=== PATIENT | female | born 1995 | race Caucasian/White ===

== ENCOUNTER 2018-08-21 12:25 | Outpatient (REF) | payer MEDICAID, SELFPAY ==
--- NOTE | 2018-08-21 10:00 | PAPFT_PTH ---
PATIENT: Berna Lawrence LOC: [facility] U#:[id number] AGE/SX: 22/F ROOM: RE08/21/[address]: Dede Cunha NP : 1995 BED: DIS: 08/21/2018 SPEC #: [id number] RECD: 08/21/18 13:17 STATUS: KING MAHER #: [id number] JUAN: 08/21/18 10:[address]: Dede Cunha NP DEPT: PENDING SALE TO [facility] Cytology RECD BY: Kimberlee Kulkarni ENTERED: 08/21/18 13:17 SP TYPE: PAPFT OT DR: Marquita Mckeon APRN Tissues: 1 - CX/ENDOCX FOR PAP SMEARS Procedures: PAP THIN PREP/[facility] Screening Comments: [id number] (CHLAMYDIA/GC)
[2018-08-23 14:04] LABS: Chlamydia Result Negative; GC Result Negative; Specimen Description SEE COMMENTS
== END 2018-08-21 12:45 ==
LOC: LBN 12:25
PROVIDERS: PCP Nurse Practitioner; Visit Provider Nurse Practitioner Women's Health
DX: Z12.4 Encounter for screening for malignant neoplasm of cervix (principal); Z11.51 Encounter for screening for human papillomavirus (HPV); Z11.3 Encounter for screening for infections with a predominantly sexual mode of transmission
CPT/HCPCS: 87491; 87591; 88142

== ENCOUNTER 2020-02-19 22:11 | Outpatient (REF) | payer MEDICAID, SELFPAY ==
[2020-02-19 17:36] LABS: *AMPHETAMINES SCREEN URINE Negative (Negative); *BARBITURATES SCREEN URINE Negative (Negative); *BENZODIAZEPINES SCREEN URINE Negative (Negative); Cannabinoids THC POSITIVE (Negative); Cocaine Screen,Urine Negative (Negative); METHADONE URINE SCREEN Negative (Negative); OPIATES URINE SCREEN Negative (Negative)
[2020-02-19 17:50] LABS: Tricyclic Antidepressants Negative (Negative)
[2020-02-26 12:11] LABS: Buprenorphine Negative
== END 2020-02-19 22:31 ==
LOC: LBN 22:11
PROVIDERS: Visit Provider Advanced Practice Midwife
DX: O26.92 Pregnancy related conditions, unspecified, second trimester (principal); Z34.90 Encounter for supervision of normal pregnancy, unspecified, unspecified trimester
CPT/HCPCS: 80307; 87086

== ENCOUNTER 2020-02-27 04:08 | Outpatient (CLI) | payer MEDICAID, SELFPAY ==
--- NOTE | 2020-02-27 06:15 | DI.US_ITS ---
EXAM: US OB 2-3 TRIMESTER W MOD CLINICAL HISTORY: routine pnc,O26.92. TECHNIQUE: Transabdominal obstetrical ultrasound performed. COMPARISON: No exams were available for comparison FINDINGS:: Number of fetuses: One. position: Variable Placental location: Anterior no evidence of previa. BIOMETRIC DATA: BPD: 35 mm = 16+ 6 weeks HC: 141mm = 17+ 3 weeks AC: 115mm = 17+ 2 weeks FL: 22 mm = 16+ 4 weeks EFW: 176 Gms = 70% Composite Age: 17+ 0 weeks EDC: 06 August 2020 Heart Rate: 140BPM Amniotic fluid: Amount of fluid is within normal limits. survey: Due to the early gestational age, the anatomy is not adequately visualized. No g ross abnormalities are identified. IMPRESSION: biometric measurements correspond to 17 +0 weeks. The patient is returning 25 March 2020 f or anatomic survey. DATA REPOSITORY:
== END 2020-02-27 04:28 ==
PROVIDERS: Visit Provider Advanced Practice Midwife
DX: Z34.92 Encounter for supervision of normal pregnancy, unspecified, second trimester (principal)
CPT/HCPCS: 76805

== ENCOUNTER 2020-02-27 11:27 | Outpatient (REF) | payer MEDICAID, SELFPAY ==
--- NOTE | 2020-02-27 09:00 | PAPFT_PTH ---
PATIENT: Berna Lawrence LOC: [facility] U#:[id number] AGE/SX: 24/F ROOM: RE02/27/[address]: Arslan Ortiz RN : 1995 BED: DIS: 02/27/2020 SPEC #: [id number] RECD: 02/27/20 12:40 STATUS: KING REQ #: [id number] JUAN: 02/27/20 09:[address]: Arslan Ortiz DEPT: [facility] Cytology RECD BY: Kimberlee Kulkarni ENTERED: 02/27/20 12:40 SP TYPE: PAPFT CB DR: Anai Tissues: 1 - CX/ENDOCX FOR PAP SMEARS Procedures: PAP THIN PREP/[facility]VM Screening Comments: [id number]
[2020-03-02 07:09] LABS: Chlamydia Result Negative (Negative); GC Result Negative (Negative)
== END 2020-02-27 11:47 ==
LOC: LBN 11:27
PROVIDERS: Visit Provider Advanced Practice Midwife
DX: Z11.3 Encounter for screening for infections with a predominantly sexual mode of transmission (principal); Z12.4 Encounter for screening for malignant neoplasm of cervix; R87.610 Atypical squamous cells of undetermined significance on cytologic smear of cervix (ASC-US)
CPT/HCPCS: 87491; 87591; 88142

== ENCOUNTER 2020-02-27 17:39 | Outpatient (REF) | payer MEDICAID, SELFPAY | END 2020-02-27 17:59 | LOC: LBN 17:39 | PROVIDERS: Visit Provider Advanced Practice Midwife | DX: Z34.92 Encounter for supervision of normal pregnancy, unspecified, second trimester (principal); Z36.89 Encounter for other specified antenatal screening; Z11.59 Encounter for screening for other viral diseases; Z11.4 Encounter for screening for human immunodeficiency virus [HIV]; Z01.84 Encounter for antibody response examination | CPT/HCPCS: 36415; 82950; 86787; 86803; 86850; 86900; 86901; 87340; 87389; 87522; 84443; 85025; 86762; 86780 ==

== ENCOUNTER 2020-04-01 01:34 | Outpatient (CLI) | payer MEDICAID, SELFPAY ==
--- NOTE | 2020-04-01 14:34 | DI.US_ITS ---
EXAM: US OB F/U FACIAL/LVOT/RVOT CLINICAL HISTORY: F/U SURVEY. TECHNIQUE: Transabdominal obstetrical ultrasound performed. COMPARISON: US US OB 2-3 TRIMESTER W MOD from 02/27/2020 FINDINGS: Transabdominal obstetrical ultrasound performed. FINDINGS: Number of fetuses: One. position: Cephalic heart rate: 145 bpm. Placental location: Posterior. No evidence of previa. BIOMETRIC DATA: Amniotic fluid index: Amount of fluid is within normal limits. ANATOMICAL SURVEY: Within normal limits. IMPRESSION: 1. Single live intrauterine gestation as above. 2. Completion of the anatomic survey was performed. No anatomic abnormalities are identi fied sonographically. DATA REPOSITORY:
== END 2020-04-01 01:54 ==
PROVIDERS: Visit Provider Advanced Practice Midwife
DX: Z34.90 Encounter for supervision of normal pregnancy, unspecified, unspecified trimester (principal)
CPT/HCPCS: 76815

== ENCOUNTER 2020-06-08 03:46 | Outpatient (CLI) | payer MEDICAID, SELFPAY ==
[2020-06-08 10:10] LABS: HCT 34.4 % (36.0-46.0); HGB 11.1 g/dL (11.2-15.7); MCH 27.2 pg (27.0-33.0); MCHC 32.3 % (32.0-36.0); MCV 84.3 fL (80-95); Platelet Count 241 10^3/uL (130-400); RBC 4.08 10^6/uL (3.93-5.22); RDW 14.6 % (11.7-14.6); RDW-SD 44.6 fL; WBC 11.86 10^3/uL (4.4-10.8)
[2020-06-08 10:26] LABS: Glucose,1 Hr (Glucola) 127 mg/dL (80-140)
== END 2020-06-08 04:06 ==
PROVIDERS: Visit Provider Advanced Practice Midwife
DX: O26.893 Other specified pregnancy related conditions, third trimester (principal); O36.0130 Maternal care for anti-D [Rh] antibodies, third trimester, not applicable or unspecified; Z67.91 Unspecified blood type, Rh negative; Z3A.28 28 weeks gestation of pregnancy
CPT/HCPCS: 36415; 82950; 85027; 86850; 90384

== ENCOUNTER 2020-06-22 19:51 | Outpatient (REF) | payer MEDICAID, SELFPAY ==
[2020-06-22 16:06] LABS: *AMPHETAMINES SCREEN URINE Negative (Negative); *BARBITURATES SCREEN URINE Negative (Negative); *BENZODIAZEPINES SCREEN URINE Negative (Negative); Cannabinoids THC POSITIVE (Negative); Cocaine Screen,Urine Negative (Negative); METHADONE URINE SCREEN Negative (Negative); OPIATES URINE SCREEN Negative (Negative)
[2020-06-22 17:37] LABS: Tricyclic Antidepressants Negative (Negative)
[2020-06-26 11:26] LABS: Buprenorphine Negative; Norbuprenorphine Negative
== END 2020-06-22 20:11 ==
LOC: LBN 19:51
PROVIDERS: Visit Provider Advanced Practice Midwife
DX: Z34.93 Encounter for supervision of normal pregnancy, unspecified, third trimester (principal); Z3A.30 30 weeks gestation of pregnancy; F12.90 Cannabis use, unspecified, uncomplicated
CPT/HCPCS: 80307

== ENCOUNTER 2020-08-06 02:31 | Outpatient (CLI) | payer MEDICAID, SELFPAY ==
--- NOTE | 2020-08-06 08:00 | DI.US_ITS ---
EXAM: US OB HUMPHREY WEIGHT CLINICAL HISTORY: s>/=d,Z34.90. TECHNIQUE: Transabdominal obstetrical ultrasound was performed. COMPARISON: Prior ultrasound 04/02/2020 FINDINGS: There is a single viable intrauterine gestation with cardiac activity identified-150 bpm The fetus is presently in cephalic position . Amniotic fluid: There is a normal amount of amniotic fluid with an HUMPHREY of 10.3cm. Placental location: The placenta is posterior grade 2,with no evidence of placenta previa. Dating parameters place this at approximately 38 weeks and 2 days gestational age, implying SARAH of August 18, 2020. BPD measures 38 weeks and 4 days HC measures 37 weeks and 4 days AC measures 38 weeks and 0 days FL measures 38 weeks and 5 days Estimated weight is 3422 gm-7 pounds 9 ounces Fetus is at the 40th percentile on the Hadlock scale. IMPRESSION:: Viable 3rd trimester gestation, as described above. Fetus is at the 40th percentile on the Hadlock scale Posterior placenta. No evidence of placenta previa. DATA REPOSITORY:
== END 2020-08-06 02:51 ==
PROVIDERS: Visit Provider Advanced Practice Midwife
DX: Z34.93 Encounter for supervision of normal pregnancy, unspecified, third trimester (principal)
CPT/HCPCS: 76816

== ENCOUNTER 2020-08-06 19:05 | Outpatient (REF) | payer MEDICAID, SELFPAY ==
[2020-08-06 16:32] LABS: *AMPHETAMINES SCREEN URINE Negative (Negative); *BARBITURATES SCREEN URINE Negative (Negative); *BENZODIAZEPINES SCREEN URINE Negative (Negative); Cannabinoids THC POSITIVE (Negative); Cocaine Screen,Urine Negative (Negative); METHADONE URINE SCREEN Negative (Negative); OPIATES URINE SCREEN Negative (Negative)
[2020-08-06 16:34] LABS: Tricyclic Antidepressants Negative (Negative)
[2020-08-14 11:52] LABS: Buprenorphine Negative ng/mL (Cutoff: 5.0)
== END 2020-08-06 19:25 ==
LOC: LBN 19:05
PROVIDERS: Visit Provider Advanced Practice Midwife
DX: Z34.93 Encounter for supervision of normal pregnancy, unspecified, third trimester (principal); Z36.85 Encounter for antenatal screening for Streptococcus B
CPT/HCPCS: 80307; 87081

== ENCOUNTER 2020-08-08 01:07 | Inpatient (IN) | payer MEDICAID, SELFPAY ==
[2020-08-08] VITALS (14 sets, daily range): BP systolic 123–146; BP diastolic 75–89; PULSE 68–100; RESP 16–18; TEMP 36.4–36.8; O2SAT 75–100
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
[2020-08-08 01:38] LABS: HCT 36.5 % (36.0-46.0); HGB 11.8 g/dL (11.2-15.7); MCH 26.8 pg (27.0-33.0); MCHC 32.3 % (32.0-36.0); MCV 82.8 fL (80-95); MPV 10.9 fL (8.0-11.0); Platelet Count 227 10^3/uL (130-400); RBC 4.41 10^6/uL (3.93-5.22); WBC 13.24 10^3/uL (4.4-10.8)
[2020-08-08] MEDS: Oxytocin/Normal Saline 30 UNITS/500 ML BAG 95 UNITS IV (03:35)
--- NOTE | 2020-08-08 03:39 | PLAC_PTH ---
PATIENT: Berna Lawrence LOC: OBS U#:[id number] AGE/SX: 24/F ROOM: OBS.305 RE08/08/[address]: Umm Shoemaker CNM : 1995 BED: A DIS: 08/09/2020 SPEC #: [id number] RECD: 08/09/20 12:53 STATUS: SOUSofia REQ #: [id number] JUAN: 08/08/20 03:[address]: Umm Shoemaker DEPT: Surgical Specimen RECD BY: Kimberlee Kulkarni ENTERED: 08/09/20 12:53 SP TYPE: PLAC OTHR DR: Unknown,Unknown Tissues: 1 - PLACENTA (3RD TRIMESTER) Procedures: GROSS AND MICRO LEVEL 5 Comments: [id number]
--- NOTE | 2020-08-08 04:05 | OBVDS_ITS ---
Date of service: 08/08/20 Time of Service: 04:05 OB Labor/ Delivery Information Baby A Delivery Delivery Method: Spontaneaous Presentation: Cephalic Cephalic Position: Vertex Vertex Position: Left Occipital Anterior Breech Position: N/A Cord Description-Baby A: Other (nuchal hand) Amniotic Fluid: Meconium Estimated Blood Loss: 350 ml Delivery Outcome: Liveborn Infant Transferred: Remains with Mother Note: Pt labored in bed using nitrous, AROM of large forebag for meconium stained fluid @ 9 cm with vtx @ 0 station, FHT 110-130 bpm through a contraction, 2nd stage huddle completed, pt spontaneously bearing down while in LLP, upper leg held by pt's support person, of vigorous female with nuchal hand noted, bulb sx and held in field until mother ready to receive then to mother's arms, pitocin infusion IV begun, cord ceased pulsations and was clamped then cut by pt's support person, cord blood collected, Senia placenta intact though cord appears to be 2 vessel (1a, 1v), placenta to pathology and cord segment sent for drug screen d/t maternal hx. Perineum and vagina inspected, first degree perineal lac noted, not bleeding and well approximated by maternal tissue thus not repaired, no labial or further vaginal lac visualized. Minimal rubra, apgars 8/9, weight 3170, good maternal/infant bonding observed. Providers Nurse Traffic Observer: Lauren Shoemaker Nurse: Thu Goodman Nurse: Destiny Escamilla Labor/Delivery Information Number of Babies in Womb: 1 Steroids Given: None Reason Steroids Not Administered: N/A Group Beta Strep: Done-Result Unknown Antibiotics Administered: No Rubella Status: Immune Blood Type: B- Varicella Immunity: Immune Maternal Complications: None Shoulder Dystocia: No Stages of Labor Onset of Labor Date: 08/07/20 Onset of Labor Time: 23:00 Complete Dilatation Date: 08/08/20 Complete Dilatation Time: 03:23 Labor - Stage 1 Duration: 24 hours and 0 minutes ROM Baby A: 08/08/20 ROM Baby A: 03:12 Infant Delivery Date-Baby A: 08/08/20 Delivery Time-Baby A: 03:32 Labor Stage 2 Duration: 9 minutes Placenta Delivery Date-Baby A: 08/08/20 Placenta Delivery Time-Baby A: 03:39 Labor-Stage 3 Duration: 7 minutes Total Length of Labor-Baby A: 4 hours and 32 minutes Placenta Cultured: No Placenta Status: Delivered Baby A Gender: Female Gestational Status: Term (39-41.6 wks) Gestational Age in Weeks/Days: 40 Weeks and 1 Days weight: 6 lb 15.818 oz Weight Comment: 3170 gms Score-1 Minute Interval(Baby A) Heart Rate-1 minute: 100 BPM or Greater Respiratory Effort- 1 minute: Spontaneous/Strong Cry Muscle Tone-1 minute: Minimal Flexion/Extension Reflex Response-1 minute: Prompt Response Color-1 minute: Bluish Hands or Feet Score-5 Minute Interval(Baby A) Heart Rate- 5 minute: 100 BPM or Greater Respiratory Effort-5 minute: Spontaneous/Strong Cry Muscle Tone-5 minute: Active Movement Reflex Response-5 minute: Prompt Response Color-5 minute: Bluish Hands or Feet Procedure Procedures: Cord Blood Collection
[2020-08-08] MEDS: Ibuprofen 600 MG TAB PO ×3 (05:05→19:48)
[2020-08-08] MEDS: Acetaminophen 325 MG TAB 650 MG PO ×3 (05:05→19:48)
[2020-08-08] MEDS: Normal Saline Flush 10 ML SYR IVP (08:15)
[2020-08-08 20:17] LABS: COVID-19 RT-PCR UVMMC Result Negative (Negative)
[2020-08-09 07:03] LABS: HCT 38.4 % (36.0-46.0); HGB 12.1 g/dL (11.2-15.7); MCH 26.1 pg (27.0-33.0); MCHC 31.5 % (32.0-36.0); MCV 82.8 fL (80-95); MPV 10.9 fL (8.0-11.0); Platelet Count 208 10^3/uL (130-400); RBC 4.64 10^6/uL (3.93-5.22); RDW 14.1 % (11.7-14.6); RDW-SD 42.5 fL; WBC 11.47 10^3/uL (4.4-10.8)
[2020-08-09] MEDS: Ibuprofen 600 MG TAB PO (07:11)
[2020-08-09] MEDS: Acetaminophen 325 MG TAB 650 MG PO ×2 (07:11→11:12)
--- NOTE | 2020-08-09 07:12 | W.PM.OBPNV1 ---
Date of service: 08/09/20 Time of Service: 07:12 Assessment and Plan Assessment and plan (1) Term delivered: Status: Acute Assessment and plan: A: PPD#1, nml recovery, without complaint off to a good start, handling baby confidently Supported living situation: shares house w/cousin's family FOB is in touch w/pt Baby's blood type is O+, RhoGam indicated P: Pt requests discharge this morning to boarder status until baby is released Declines any BCM at this time Assure admin of RhoGam prior to discharge Extensive discussion with pt about baby blues and PPD At risk of PPD d/t hx, pt declines referral, meds or counseling at this time Written instructions reviewed and given to pt F/up in-person @ 2 & 6 wks with ballistic technician; PAP to be done at 6 week visit Refer to [facility] for PCP and f/up of +HCV status (2) Tobacco dependence: Status: Acute (3) Marijuana smoker: Status: Acute (4) PTSD (post-traumatic stress disorder): Status: Acute (5) Hepatitis C virus infection without hepatic coma: Status: Acute Qualifiers: Viral hepatitis chronicity: chronic Qualified Code(s): B18.2 - Chronic viral hepatitis C (6) H/O: substance abuse: Status: Acute Subjective Subjective Patient comments: No complaints, Pain well controlled, Tolerating diet, Flatus present and Bowel Movement baby status: Doing well, Nursing well, Rooming in and Strong Bonding Observed [place] feeding status: Exclusively breast feeding Exam Physical Exam Vital signs: Temp Pulse Resp BP Pulse Ox 98.2 F 74 18 132/84 75 L 08/08/20 20:05 08/08/20 20:05 08/08/20 20:05 08/08/20 20:05 08/08/20 17:10 Vital Signs Reviewed: Yes Narrative: Hgb 21.1 this morning Constitutional Constitutional: no acute distress HEENT Exam HEENT Exam: Normal Neck Exam Neck Exam: Normal Breast Exam Bilateral: Breast Exam: Normal and Soft Nipple Exam: Normal and Uninjured Respiratory Exam Respiratory Exam: Normal Cardiovascular Exam Cardiovascular Exam: Normal Abdominal Exam Abdomen: Other (soft and nontender) Fundal Exam Fundus: Below Umbilicus and Firm Rectal Exam Rectal Exam: Not Done Exam Perineum: Normal (without edema or bruising) Extremities Exam Extremity Exam: Normal and Full ROM Back/Spine/Pelvis Exam Back Exam: Normal Skin Exam Skin Exam: Normal Neurological Exam Neurological Exam: Normal Psychiatric Exam Psychiatric Exam: Normal Results Hemoglobin/Hematocrit: Hgb 12.1 g/dL (11.2-15.7) 08/09/20 06:52 Hct 38.4 % (36.0-46.0) 08/09/20 06:52
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
== END 2020-08-09 11:30 | disposition home or self-care (01) | DRG 806 ==
PROVIDERS: Admitting Provider Advanced Practice Midwife; Visit Provider Advanced Practice Midwife
DX: O80 Encounter for full-term uncomplicated delivery (principal); O98.42 Viral hepatitis complicating childbirth; Z37.0 Single live birth; O36.0930 Maternal care for other rhesus isoimmunization, third trimester, not applicable or unspecified; Z3A.39 39 weeks gestation of pregnancy; O77.0 Labor and delivery complicated by meconium in amniotic fluid; O70.0 First degree perineal laceration during delivery; O99.324 Drug use complicating childbirth; F12.90 Cannabis use, unspecified, uncomplicated; O99.334 Smoking (tobacco) complicating childbirth; F17.210 Nicotine dependence, cigarettes, uncomplicated; O99.344 Other mental disorders complicating childbirth; F32.9 Major depressive disorder, single episode, unspecified; O99.214 Obesity complicating childbirth; E66.9 Obesity, unspecified; B18.2 Chronic viral hepatitis C
CPT/HCPCS: 36415; 85027; 85461; 86850; 86900; 86901; 90384; U0003; 88307; J2790

== ENCOUNTER 2021-03-07 03:38 | Outpatient (CLI) | payer MEDICAID, SELFPAY ==
[2021-03-07 16:30] LABS: Kit/Specimen SENT
[2021-03-07 16:45] LABS: Abs Immature Grans 0.04 10^3/uL (0.0-0.06); Absolute Basophil Count 0.03 10^3/uL (0.0-0.2); Absolute Eosinophil Count 0.09 10^3/uL (0.0-0.7); Absolute Lymphocyte Count 2.66 10^3/uL (1.2-3.4); Absolute Monocyte Count 0.63 10^3/uL (0.1-0.8); Absolute Neutrophil Count 6.53 10^3/uL (1.2-6.7); Basophils % 0.3; Eosinophils % 0.9; HCT 38.6 % (36.0-46.0); Immature Grans % 0.4; Lymphocytes % 26.7; MCH 25.1 pg (27.0-33.0); MCHC 31.1 % (32.0-36.0); MCV 80.6 fL (80-95); MPV 11.2 fL (8.0-11.0); Monocytes % 6.3; Neutrophils % 65.4; Nucleated RBC 0 %; Platelet Count 195 10^3/uL (130-400); RBC 4.79 10^6/uL (3.93-5.22); RDW 14.6 % (11.7-14.6); RDW-SD 42.8 fL; WBC 9.98 10^3/uL (4.4-10.8)
[2021-03-08 11:12] LABS: Hepatitis B Surface Ag Negative (Negative)
[2021-03-08 11:29] LABS: Varicella IgG Antibody Positive (See Note)
[2021-03-08 11:35] LABS: Rubella IgG Ab (UVM) Positive (See Note)
[2021-03-08 11:53] LABS: HIV-1/2 Ag & Ab Screen Negative (Negative)
[2021-03-09 14:29] LABS: Syphilis Total Ab w/Reflex Nonreactive (Nonreactive)
[2021-03-09 14:59] LABS: HCV RNA Qualitative Undetected (Undetected)
== END 2021-03-07 03:39 | disposition home or self-care (01) ==
LOC: LBO 17:13 → LBN 17:47 → LBO 18:26
PROVIDERS: Visit Provider Advanced Practice Midwife
DX: Z34.91 Encounter for supervision of normal pregnancy, unspecified, first trimester (principal); Z11.4 Encounter for screening for human immunodeficiency virus [HIV]; Z11.59 Encounter for screening for other viral diseases; Z01.84 Encounter for antibody response examination; Z3A.12 12 weeks gestation of pregnancy
CPT/HCPCS: 80307; 86787; 86850; 86900; 86901; 87340; 87389; 87491; 87522; 87591; 85025; 86762; 86780; 87086; 87480; 87510; 87660

== ENCOUNTER 2021-03-07 18:27 | Outpatient (REF) | payer MEDICAID, SELFPAY ==
--- NOTE | 2021-03-07 15:15 | PAPFT_PTH ---
PATIENT: Berna Lawrence LOC: [facility] U#:[id number] AGE/SX: 25/F ROOM: RE03/07/[address]: Bree Jara CNM : 1995 BED: DIS: 03/07/2021 SPEC #: [id number] RECD: 03/07/21 18:34 STATUS: [place] REQ #: [id number] JUAN: 03/07/21 15:[address]: Bree Jara DEPT: [facility] Cytology RECD BY: Kimberlee Kulkarni ENTERED: 03/07/21 18:34 SP TYPE: PAPFT OTHR DR: Unknown,Unknown Tissues: 1 - CX/ENDOCX FOR PAP SMEARS Procedures: PAP THIN PREP/UVM Screening Comments: [id number]
[2021-03-07 19:35] LABS: *AMPHETAMINES SCREEN URINE Negative (Negative); *BARBITURATES SCREEN URINE Negative (Negative); *BENZODIAZEPINES SCREEN URINE Negative (Negative); Cannabinoids THC Positive (Negative); Cocaine Screen,Urine Negative (Negative); METHADONE URINE SCREEN Negative (Negative); OPIATES URINE SCREEN Negative (Negative)
[2021-03-07 19:37] LABS: Tricyclic Antidepressants Negative (Negative)
[2021-03-09 14:53] LABS: Chlamydia Result Negative (Negative); GC Result Negative (Negative)
[2021-03-12 12:01] LABS: Buprenorphine Negative ng/mL (Cutoff: 5.0); Norbuprenorphine Negative ng/mL (Cutoff: 2.5)
== END 2021-03-07 18:28 | disposition home or self-care (01) ==
LOC: LBN 18:27
PROVIDERS: Visit Provider Advanced Practice Midwife
DX: Z34.91 Encounter for supervision of normal pregnancy, unspecified, first trimester (principal); Z11.3 Encounter for screening for infections with a predominantly sexual mode of transmission; Z12.4 Encounter for screening for malignant neoplasm of cervix; Z3A.12 12 weeks gestation of pregnancy; R87.612 Low grade squamous intraepithelial lesion on cytologic smear of cervix (LGSIL)
CPT/HCPCS: 80307; 87491; 87591; 88142; 87086; 87480; 87510; 87660

== ENCOUNTER 2021-04-05 10:42 | Outpatient (CLI) | payer MEDICAID, SELFPAY ==
--- NOTE | 2021-04-05 10:30 | RT.EKG_ITS ---
APPROVED REPORT Exam: Resting ECG Reason for Exam: chest pain Patient Location: O HR:91 bpm ECG Measurements Heart Rate 91 AXIS GA 145 P 48 QRSd 92 QRS 58 QT 337 T 20 QTc 415 Conclusion Sinus rhythm...normal P axis, V-rate 50- 99 Normal Electrocardiogram
== END 2021-04-05 10:43 | disposition home or self-care (01) ==
LOC: DI.CARD 10:44
PROVIDERS: Visit Provider Internal Medicine Cardiovascular Disease
DX: R07.9 Chest pain, unspecified (principal)
CPT/HCPCS: 93010

== ENCOUNTER 2021-04-06 03:25 | Outpatient (CLI) | payer MEDICAID, SELFPAY ==
[2021-04-08 09:26] LABS: AFP 35.5 ng/mL; GA used in risk estimate Scan estimate; IVF Pregnancy No; Initial or repeat testing Initial testing; Insulin dependent diabetes No; Maternal Weight 240 lbs; Number of Fetuses 1; Prev Pregnancy w/NTD No; RECOMMENDED FOLLOW UP None.; Results Summary Normal risk
== END 2021-04-06 03:26 | disposition home or self-care (01) ==
LOC: LBO 03:25
PROVIDERS: Visit Provider Advanced Practice Midwife
DX: Z34.82 Encounter for supervision of other normal pregnancy, second trimester (principal)
CPT/HCPCS: 36415; 82105

== ENCOUNTER 2021-04-20 03:07 | Outpatient (CLI) | payer MEDICAID, SELFPAY ==
--- NOTE | 2021-04-20 08:15 | DI.US_ITS ---
Exam(s) US OB 2-3 TRIMESTER EXAM: US OB 2-3 TRIMESTER CLINICAL HISTORY: anatomy and placental location,Z34.80. TECHNIQUE: Transabdominal obstetrical ultrasound was performed. COMPARISON: US US OB HUMPHREY WEIGHT from 08/06/2020 FINDINGS: There is a single viable intrauterine gestation with cardiac activity identified-155 bpm. Amniotic fluid: There is a normal amount of amniotic fluid. Placental location: The placenta is anterior grade 1,with no evidence of placenta previa.The distance from the tip of the placenta to the internal cervical os is 5.2 cm. Distance from the umbilical cor d insertion to the placental margin is 7 centimeter. ANATOMY: A 3 vessel umbilical cord is seen. A four-chamber cardiac view was obtained. Right and left ventricular outflow tracts were imaged. There are no obvious abnormalities of the spinal column evident. There is no obvious abnormal ity of the anterior abdominal wall. stomach and urinary bladder are identified and there is no evidence of hydronephrosis. No abnormalities of the upper lip region are identified. No evidence of choroid plexus cysts i n the brain. Dating parameters place this at approximately 19 weeks and 3 days gestational age. BPD measures 19 weeks and 5 days HC measures 19 weeks and 4 day AC measures 19 weeks and 2 days FL measures 19 weeks and 0 days Estimated weight is 279 gm-0 pounds 10 ounces Fetus is at the 57th percentile on the Hadlock scale. IMPRESSION:: Single viable intrauterine gestation which is approximately 19 weeks and 3 days gestati onal age, implying an SARAH of September 11, 2021. There are no obvious anomalies evident on today's study. The placenta is anterior with no evidence of placenta previa. There is a normal amount of amniotic fluid. DATA REPOSITORY:
== END 2021-04-20 03:27 ==
PROVIDERS: Visit Provider Advanced Practice Midwife
DX: Z34.92 Encounter for supervision of normal pregnancy, unspecified, second trimester (principal)
CPT/HCPCS: 76805

== ENCOUNTER 2021-05-04 02:38 | Outpatient (CLI) | payer MEDICAID, SELFPAY ==
--- NOTE | 2021-05-04 15:35 | DI.US_ITS ---
APPROVED REPORT EXAM: Comprehensive 2D, Doppler, and color-flow Echocardiogram Patient Location: Out-Patient Assistant Professor Of Philosophy: Tiesha Joshua RDCS (AE) Indications: Chest pain Other Information Study Quality: Adequate Conclusion Normal left ventricular wall thickness and chamber size. Estimated ejection fraction is 60%. There are no segmental wall motion abnormalities Normal right ventricular size and systolic function Both atria are normal in size There is no structural or hemodynamically significant valvular disease Wall motion Left Ventricle The left ventricle is normal size. The left ventricular systolic function is normal. The left ventric ular ejection fraction is within the normal range. There is normal left ventricular wall thickness. T here is normal LV segmental wall motion. There is no ventricular septal defect visualized. LVEF is 59 %. Right Ventricle The right ventricle is normal size. The right ventricular systolic function is normal. The RVSP is 26 .7 mmHg. Atria The left atrium size is normal. The right atrium size is normal. The interatrial septum is intact wit h no evidence for an atrial septal defect. Aortic Valve The aortic valve is normal in structure. Aortic valve is trileaflet. There is no aortic valvular sten osis. No aortic regurgitation is present. Mitral Valve The mitral valve is normal in structure. No evidence of mitral valve stenosis. Trace mitral regurgita tion. Tricuspid Valve The tricuspid valve is normal in structure. There is no tricuspid valve stenosis. Trace tricuspid reg urgitation. Pulmonic Valve The pulmonary valve is normal in structure. There is no pulmonic valvular stenosis. Trace pulmonic re gurgitation. Great Vessels The aortic root is normal in size. The ascending aorta is normal in size. Aortic arch is normal in ca liber. IVC is normal in size and collapses >50% with inspiration. Pericardium There is no pericardial effusion. 2D Dimensions IVSD d PLAX 0.85 cm F: 0.6-1.0 LV Vol A2C d MOD 146.8 mL LVPW d PLAX 0.87 cm F: 0.6 - 1.0 LV Vol A4C d MOD 155.8 mL LVID d PLAX 5.54 cm F: 3.8 - 5.2 LA vol/ BSA A2C s A-L 26.9 mL/m2 LVDs 3.65 cm F: 2.2 - 3.5 LA vol/ BSA A4C s A-L 24.1 mL/m2 Ao Root d 2.69 cm F: 2.7 - 3.3 LA Vol/ BSA Biplane s A-L 25.5 mL/m2 RA Area A4C 17.18 cm2 LA Area A4C s MOD 21.22 cm2 RA Vol/ BSA A4C s A-L 18.1 mL/m2 LA Area A2C s MOD 22.37 cm2 Ao Asc Diam d 3.03 cm F: 2.3 - 3.1 LV EF A4C MOD 59.4 % LV EF Teichholz 62.4 % LV EF A2C MOD 58.0 % LVEF (Camejo's) 59.07 % F: 54 - 74 LV EF Biplane MOD 59.1 % LV Volume 105.66 mL F: 46 - 106 SV 90.66 mL LV Volume Index 39.87 mL/m2 F: 29 - 61 SV Index 34.18 mL/m2 LV Vol Biplane MOD 153.5 mL FS 34.00 % LV Diastology MV E' medial 0.089 (>0.07 m/s) E/A Ratio 1.6 LV E/e MED 8.20 (<14) MV E Vmax 0.73 (0.4-1.3 m/s) MV E' lateral 0.142 (>0.1 m/s) MV A Vmax 0.45 (0.4-1.3 m/s) LV E/e LAT 5.10 (<14) MV E/A Ratio 1.48 MV E/E' medial 8.21 MV E/E' lateral 5.15 Aortic Valve LVOT Area 3.90 cm2 AoV Area Vmax 2.65 cm2 LVOT Vmax 1.09 m/s AoV Area/ BSA (Vmax) 1.00 cm2/m2 LVOT Mean Naveen. 0.69 m/s ADELA Mean Naveen. 2.32 cm2 LVOT Peak Grad 4.7 mmHg ADELA Mean Naveen. Index 0.87 cm2/m2 LVOT Mean Grad 2.3 mmHg LVOT VTI 0.230 m LVOT Diam s 2.20 cm AoV Vmax 1.60 m/s Velocity Ratio 0.68 AoV Mean Naveen. 1.17 m/s AoV Peak Grad 10.3 mmHg LVOT SV 89.82 mL AoV Mean Grad 6.1 mmHg AoV VTI 0.307 m AoV Area VTI 2.92 cm2 AoV Area/ BSA (VTI) 1.10 cm/m2 Mitral Valve MV DT 163 (160-240 msec) MV PHT 47 msec MV Area PHT 4.65 cm2 MV VTI 0.225 m MV Area VTI 3.98 (4.0-6.0 cm2) Pulmonary Valve PV Vmax 1.45 (0.5-1.5 m/s) RVOT Peak Gr. 2.23 mmHg PV Peak Grad 8.5 mmHg RVOT Mean Gr. 1.00 mmHg PV Mean Grad 4.2 mmHg RVOT VTI 0.164 m PV VTI 0.252 m RVOT Vmax 0.75 m/s Tricuspid Valve TR Peak Grad 23.6 mmHg TR Vmax 2.43 m/s RA Pressure 3.00 mmHg RVSP (TR) 26.7 mmHg
== END 2021-05-04 02:58 ==
PROVIDERS: Visit Provider Internal Medicine Cardiovascular Disease
DX: R07.9 Chest pain, unspecified (principal)
CPT/HCPCS: 93306

== ENCOUNTER 2021-06-24 12:42 | Outpatient (CLI) | payer MEDICAID, SELFPAY ==
[2021-06-24 10:49] LABS: HCT 35.8 % (36.0-46.0); HGB 11.2 g/dL (11.2-15.7); MCH 25.9 pg (27.0-33.0); MCHC 31.3 % (32.0-36.0); MCV 82.9 fL (80-95); MPV 10.3 fL (8.0-11.0); Platelet Count 219 10^3/uL (130-400); RBC 4.32 10^6/uL (3.93-5.22); RDW 14.2 % (11.7-14.6); RDW-SD 43.2 fL; WBC 11.36 10^3/uL (4.4-10.8)
[2021-06-24 10:56] LABS: Glucose,1 Hr (Glucola) 110 mg/dL (80-140)
== END 2021-06-24 12:43 | disposition home or self-care (01) ==
LOC: LBO 12:44
PROVIDERS: Visit Provider Advanced Practice Midwife
DX: O36.0130 Maternal care for anti-D [Rh] antibodies, third trimester, not applicable or unspecified (principal)
CPT/HCPCS: 36415; 82950; 85027; 86850; 90384

== ENCOUNTER 2021-07-22 02:32 | Outpatient (CLI) | payer MEDICAID, SELFPAY ==
--- NOTE | 2021-07-22 07:15 | DI.US_ITS ---
Exam(s) US OB HUMPHREY WEIGHT EXAM: US OB HUMPHREY WEIGHT CLINICAL HISTORY: interval growth,HIGH BMI,MARIJUANA USE,Z34.80. TECHNIQUE: Transabdominal obstetrical ultrasound was performed. COMPARISON: Prior ultrasound 04/20/2021 FINDINGS: There is a single viable intrauterine gestation with cardiac activity identified-169 bpm The fetus is presently in cephalic position. Three-vessel umbilical cord identified.. Amniotic fluid: There is a normal amount of amniotic fluid with an HUMPHREY of 14.4cm. Placental location: The placenta is anterior grade 2,with no evidence of placenta previa. Dating parameters place this at approximately 34 weeks and 2 days gestational age, implying SARAH of August 31, 2021. BPD measures 35 weeks and 1 day HC measures 34 weeks and 3 days AC measures 34 weeks and 1 day FL measures 33 weeks and 1 day Estimated weight is 2327 gm-5 pounds 2 ounces Fetus is at the 89th percentile on the Hadlock scale. IMPRESSION:: Viable 3rd trimester gestation, as described above. DATA REPOSITORY:
== END 2021-07-22 02:52 ==
PROVIDERS: Visit Provider Advanced Practice Midwife
DX: O99.333 Smoking (tobacco) complicating pregnancy, third trimester (principal); F17.210 Nicotine dependence, cigarettes, uncomplicated; O99.323 Drug use complicating pregnancy, third trimester; F12.10 Cannabis abuse, uncomplicated; O99.283 Endocrine, nutritional and metabolic diseases complicating pregnancy, third trimester; E66.3 Overweight
CPT/HCPCS: 76816

== ENCOUNTER 2021-08-16 20:03 | Outpatient (REF) | payer MEDICAID, SELFPAY ==
[2021-08-16 21:12] LABS: *AMPHETAMINES SCREEN URINE Negative (Negative); *BARBITURATES SCREEN URINE Negative (Negative); *BENZODIAZEPINES SCREEN URINE Negative (Negative); Cannabinoids THC Positive (Negative); Cocaine Screen,Urine Negative (Negative); METHADONE URINE SCREEN Negative (Negative); OPIATES URINE SCREEN Negative (Negative)
[2021-08-16 21:20] LABS: Tricyclic Antidepressants Negative (Negative)
[2021-08-23 08:46] LABS: Buprenorphine Negative ng/mL (Cutoff: 5.0)
== END 2021-08-16 20:04 | disposition home or self-care (01) ==
LOC: LBN 20:03
PROVIDERS: Visit Provider Advanced Practice Midwife
DX: Z34.93 Encounter for supervision of normal pregnancy, unspecified, third trimester (principal)
CPT/HCPCS: 80307; 87081

== ENCOUNTER 2021-09-15 07:42 | Outpatient (CLI) | payer MEDICAID, SELFPAY ==
[2021-09-15 09:19] VITALS: BP 134/86; PULSE 96; TEMP 36.7
[2021-09-15 09:22] VITALS: BP 134/86; PULSE 96
--- NOTE | 2021-09-15 09:52 | W.OBNST ---
Date of service: 09/15/21 Time of Service: 09:40 NST Evaluation Reason for NST Reasons for Nonstress Test: OTHER, SEE COMMENT Reason for NST Other: Rule out Labor Gestational Age Gestational Age in Weeks and Days: 40 Weeks and 1Days Test and Monitor Explained Test/Monitor Explained: Test Explained and Monitor Explained Vital Signs Blood Pressure: 134/86 Pulse: 96 Temperature: 98.1 F Urine Results Urine Protein: Negative Urine Ketones: Negative Urine Glucose: Negative Urine Blood: Negative NST Information Date on Monitor: 09/15/21 Time on Monitor: 09:12 Date off Monitor: 09/15/21 Time off Monitor: 09:36 Total Time on Monitor: 24 NST Interventions: None NST Evaluation Patient States Movement: Present FHR Baseline: 145 Variability: Moderate 6-25 bpm Accelerations: 15x15 Decelerations: None NST Results: Reactive Note NST Note Note: NST and VE done by CNM due to patient experiencing irregular contractions since last night but not feeling she is in active labor. Her concern about catching labor early is that she is GBS positive and does not want to miss her antibiotic doses. We discussed that we have plan to get her IV and antibiotics as soon as she is in active labor and that 1 dose at least 2 hours before is a good start even is second dose is not given although that would be optimal. NST is reactive and reassuring. VE 1.5/60/-2 posterior and soft. Will have patient return to office on 09/19 for next visit and further assessment or to call with concerns of labor or SROM. Patient prefers discharge to home at this time. KAREN NST Reviewed and Verified by: Bree Jara
[2021-09-15 09:56] VITALS: BP 134/86; PULSE 96; TEMP 36.7
== END 2021-09-15 09:55 | disposition home or self-care (01) ==
LOC: BCD 07:45 → OBS 08:59
PROVIDERS: Visit Provider Advanced Practice Midwife
DX: O48.0 Post-term pregnancy (principal); Z22.330 Carrier of Group B streptococcus; Z3A.40 40 weeks gestation of pregnancy
CPT/HCPCS: 59025

== ENCOUNTER 2021-09-19 07:30 | Observation (INO) | payer MEDICAID, SELFPAY ==
[2021-09-19 08:02] VITALS: BP 148/85; PULSE 108
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
[2021-09-19 08:18] VITALS: PULSE 80; RESP 22; TEMP 36.7
[2021-09-19 08:50] VITALS: BP 124/66; PULSE 90
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
== END 2021-09-19 10:04 | disposition home or self-care (01) ==
LOC: OBS 07:46
PROVIDERS: Admitting Provider Advanced Practice Midwife; Visit Provider Advanced Practice Midwife
DX: O47.1 False labor at or after 37 completed weeks of gestation (principal); Z3A.40 40 weeks gestation of pregnancy; O36.0930 Maternal care for other rhesus isoimmunization, third trimester, not applicable or unspecified; O99.213 Obesity complicating pregnancy, third trimester; E66.9 Obesity, unspecified; O99.323 Drug use complicating pregnancy, third trimester; F12.90 Cannabis use, unspecified, uncomplicated; O99.343 Other mental disorders complicating pregnancy, third trimester; F32.A Depression, unspecified; F43.10 Post-traumatic stress disorder, unspecified; O99.333 Smoking (tobacco) complicating pregnancy, third trimester
CPT/HCPCS: G0378

== ENCOUNTER 2021-09-19 17:48 | Inpatient (IN) | payer MEDICAID, SELFPAY ==
[2021-09-19] VITALS (9 sets, daily range): BP systolic 108–149; BP diastolic 68–89; PULSE 77–93; RESP 18; TEMP 36.4–36.8
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
--- NOTE | 2021-09-19 19:04 | W.OBDELIVERY ---
Date of service: 09/19/21 Time of Service: 19:04 OB Labor/ Delivery Information Baby A Delivery Delivery Method: Spontaneaous Presentation: Cephalic Cephalic Position: Vertex Vertex Position: Left Occipital Anterior Cord Description-Baby A: 3 Vessels Amniotic Fluid: Meconium (ruptured when pusing. ) Estimated Blood Loss: 150 cc. Delivery Outcome: Liveborn Infant Complications: none Infant Transferred: Remains with Mother Note: Berna Lawrence presented in active labor approximately 30 minutes prior to delivery. Second stage huddle was done shortly after arrival with plan to use pitocin IV for active management of second stage due to obesity and rapid labor, and that baby's heart rate by doppler was in normal ranges. She was 8 cm on arrival and progressed to involuntary urge to push and then with delivery of live male at 1834. Meconium fluid noted with SROM <5 minutes prior to . Baby was placed skin to skin. Cord was double clamped and cut by FOB at 5 minutes of life.IV Pitocin was begun after baby delivered per orders. Placenta delivered via davis mechanism, intact at . Fundus firms to U-1 with massage. Perineum inspected and found to be intact. EBL 150 ml. 3 vessel cord noted for baby. scores . Baby boy Elvin is at breast shortly after delivery. Positive family bonding noted. Weight . Parents plan to circ Elvin. Contraception undecided. Expect normal PP course. Will send cord segment for testing due to history of IVDA and + UDS for THC. Providers Nurse [facility]: Bree Jara Labor/Delivery Information Number of Babies in Womb: 1 Steroids Given: None Reason Steroids Not Administered: N/A Group Beta Strep: Positive Antibiotics Administered: No Number of Doses of Antibiotics: 0 Rubella Status: Immune Blood Type: B- Varicella Immunity: Immune Medication in Delivery: none Maternal Complications: None Note: Clindamycin was hung as patient began pushing due to advanced dilation on arrival, was not completed before delivery. Baby A Gestational Status: Term (39-41.6 wks) Length-Baby A: 18 in
--- NOTE | 2021-09-19 19:23 | W.OBDELIVERY ---
Date of service: 09/19/21 Time of Service: 19:00 OB Labor/ Delivery Information Baby A Delivery Delivery Method: Spontaneaous Presentation: Cephalic Cephalic Position: Vertex Vertex Position: Left Occipital Anterior Cord Description-Baby A: 3 Vessels and Clamped/Cut Amniotic Fluid: Meconium Estimated Blood Loss: 150 cc. Delivery Outcome: Liveborn Infant Complications: none Transferred: Remains with Mother Providers Nurse Customer Care Team Coach: Bree Jara Nurse: Nica Husain Nurse: Mayela Ross Labor/Delivery Information Number of Babies in Womb: 1 Steroids Given: None Reason Steroids Not Administered: N/A Group Beta Strep: Positive Antibiotics Administered: No Number of Doses of Antibiotics: 0 Rubella Status: Immune Blood Type: B- Varicella Immunity: Immune Medication in Delivery: none Maternal Complications: None Shoulder Dystocia: No Note: Berna Lawrence presented in active labor approximately 30 minutes prior to delivery. Second stage huddle was done shortly after arrival with plan to use pitocin IV for active management of second stage due to obesity and rapid labor, and that baby's heart rate by doppler was in normal ranges. She was 8 cm on arrival and progressed to involuntary urge to push and then with delivery of live male at 1834. Meconium fluid noted with SROM 1 minute prior to . Baby was placed skin to skin. Cord was double clamped and cut by FOB at 5 minutes of life.IV Pitocin was begun after baby delivered per orders. Placenta delivered via davis mechanism, intact at 1841. Fundus firms to U-1 with massage. Perineum inspected and found to be intact. EBL 150 ml. 3 vessel cord noted for baby. scores 8 at 1 minute and 9 at 5 minutes. Baby boy Elvin is at breast shortly after delivery. Positive family bonding noted. Weight 8lb 11oz. Parents plan to circ Elvin. Contraception will be progesterone only pill. Expect normal PP course. Will send cord segment for testing due to history of IVDA and + UDS for THC. KH Stages of Labor Onset of Labor Date: 09/19/21 Complete Dilatation Date: 09/19/21 Complete Dilatation Time: 18:30 ROM Baby A: 09/19/21 ROM Baby A: 18:33 ROM Total Time- Baby A: [id number] Delivery Date-Baby A: 09/19/21 Delivery Time-Baby A: 18:34 Labor Stage 2 Duration: 4 minutes Placenta Delivery Date-Baby A: 09/19/21 Placenta Delivery Time-Baby A: 18:41 Labor-Stage 3 Duration: 7 minutes Placenta Cultured: No Placenta Status: Delivered Baby A Infant Gender: Male Gestational Status: Term (39-41.6 wks) Gestational Age in Weeks/Days: 40 Weeks and 5 Days Length-Baby A: 18 in Score-1 Minute Interval(Baby A) Heart Rate-1 minute: 100 BPM or Greater Respiratory Effort- 1 minute: Slow Respiration/Weak Cry Muscle Tone-1 minute: Active Movement Reflex Response-1 minute: Prompt Response Color-1 minute: Bluish Hands or Feet Total Score-1 minute: 8 Score-5 Minute Interval(Baby A) Heart Rate- 5 minute: 100 BPM or Greater Respiratory Effort-5 minute: Spontaneous/Strong Cry Muscle Tone-5 minute: Active Movement Reflex Response-5 minute: Prompt Response Color-5 minute: Bluish Hands or Feet Total Score- 5 minute: 9
[2021-09-19 19:47] LABS: Source Nasal/Nares
[2021-09-19 20:26] LABS: COVID-19 PCR Negative (Negative)
[2021-09-19 20:35] LABS: HCT 39.5 % (36.0-46.0); HGB 12.5 g/dL (11.2-15.7); MCH 25.6 pg (27.0-33.0); MCHC 31.6 % (32.0-36.0); MCV 80.8 fL (80-95); MPV 11.4 fL (8.0-11.0); Platelet Count 248 10^3/uL (130-400); RBC 4.89 10^6/uL (3.93-5.22); RDW 14.2 % (11.7-14.6); RDW-SD 41.8 fL; WBC 17.04 10^3/uL (4.4-10.8)
[2021-09-19] MEDS: Ibuprofen 600 MG TAB PO (20:50)
[2021-09-19] MEDS: Acetaminophen 325 MG TAB 650 MG PO (20:50)
--- NOTE | 2021-09-19 23:48 | NUR.NOTE ---
Nursing Note: While speaking with pt further an error in the previous breast feeding risk assessment noted. Pt did not breast feed one of her babies due to medical reasons and only breast fed the other for 6 days.Lots of teaching and support given.
[2021-09-20 00:03] VITALS: BP 120/69; PULSE 87; RESP 18; TEMP 36.9
[2021-09-20] MEDS: Acetaminophen 325 MG TAB 650 MG PO ×3 (00:33→19:11)
[2021-09-20 00:56] VITALS: BP 125/66; PULSE 86; RESP 18; TEMP 36.3
[2021-09-20 05:00] VITALS: BP 132/83; PULSE 81; RESP 18; TEMP 36.5
[2021-09-20] MEDS: Ibuprofen 600 MG TAB PO ×3 (05:16→19:19)
[2021-09-20 08:30] VITALS: BP 128/73; PULSE 81; RESP 16; TEMP 36.3
--- NOTE | 2021-09-20 09:13 | W.PM.OBPNV1 ---
Date of service: 09/20/21 Time of Service: 09:13 Assessment and Plan Assessment and plan (1) care following vaginal delivery: Status: Acute Assessment and plan: 1. Continue present management 2. Expect discharge 3/16 pm. (2) Lactating mother: Status: Acute Assessment and plan: 1. Breast feeding is improving with patient education and support 2. Continue present management. Subjective Subjective Interval history: Feeling well, breast feeding is going fairly well. Positive family bonding noted. Meeting her own ADL's. Patient's Mood: normal, happy that she is delivered. Christiana baby status: Doing well, Nursing well, Rooming in and Strong Bonding Observed Exam Physical Exam Vital signs: Temp Pulse Resp BP 97.7 F 81 18 132/83 09/20/21 05:00 09/20/21 05:00 09/20/21 05:00 09/20/21 05:00 Vital Signs Reviewed: Yes Constitutional Constitutional: no acute distress, morbidly obese and cooperative HEENT Exam HEENT Exam: Normal Neck Exam Neck Exam: Normal Breast Exam Bilateral: Breast Exam: Normal and Soft Nipple Exam: Normal Respiratory Exam Respiratory Exam: Normal Cardiovascular Exam Cardiovascular Exam: Normal Abdominal Exam Abdomen: Other (normal and non tender) Fundal Exam Fundus: Below Umbilicus and Firm Rectal Exam Rectal Exam: Not Done Exam Patient deferred: perineal exam Comments: denies discomfort, has been voiding without difficulty and has had BM since delivery without difficulty. Extremities Exam Extremity Exam: Normal, Edema (mild non pitting edema of lower legs bilaterally. ) and Pulses Intact Skin Exam Skin Exam: Normal Neurological Exam Neurological Exam: Normal Psychiatric Exam Psychiatric Exam: Normal Results Hemoglobin/Hematocrit: Hgb 12.5 g/dL (11.2-15.7) 09/19/21 17:54 Hct 39.5 % (36.0-46.0) 09/19/21 17:54 Abnormal Lab Findings: Abnormal Labs 09/19/21 17:54 WBC 17.04 H MCH 25.6 L MCHC 31.6 L MPV 11.4 H
[2021-09-20 14:00] VITALS: BP 117/76; PULSE 87; RESP 16; TEMP 36.6; O2SAT 95
[2021-09-21 04:06] VITALS: BP 116/51; PULSE 84; RESP 16; TEMP 36.6
[2021-09-21] MEDS: Acetaminophen 325 MG TAB 650 MG PO ×2 (08:02→13:38)
[2021-09-21] MEDS: Ibuprofen 600 MG TAB PO ×2 (08:02→13:38)
[2021-09-21 08:36] VITALS: BP 132/83; PULSE 80; RESP 14; TEMP 36.5
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
[2021-09-21 12:57] LABS: HCV RNA Qualitative Undetected (Undetected)
== END 2021-09-21 14:10 | disposition home or self-care (01) | DRG 806 ==
PROVIDERS: Admitting Provider Advanced Practice Midwife; Visit Provider Advanced Practice Midwife
DX: O99.214 Obesity complicating childbirth (principal); O98.42 Viral hepatitis complicating childbirth; Z37.0 Single live birth; O36.0930 Maternal care for other rhesus isoimmunization, third trimester, not applicable or unspecified; E66.01 Morbid (severe) obesity due to excess calories; O99.824 Streptococcus B carrier state complicating childbirth; B18.2 Chronic viral hepatitis C; O99.324 Drug use complicating childbirth; F12.90 Cannabis use, unspecified, uncomplicated; Z3A.40 40 weeks gestation of pregnancy
CPT/HCPCS: 36415; 85027; 85461; 86850; 86900; 86901; 87522; 87635; 90384; J2790; J3490

== ENCOUNTER 2021-11-09 17:22 | Outpatient (REF) | payer MEDICAID, SELFPAY ==
--- NOTE | 2021-11-09 14:45 | PAPFT_PTH ---
PATIENT: Berna Lawrence LOC: [facility] U#:[id number] AGE/SX: 26/F ROOM: RE11/09/[address]: Umm Shoemaker CNM : 1995 BED: DIS: 11/09/2021 SPEC #: [id number] RECD: 11/10/21 13:10 STATUS: KING MAHER #: [id number] JUAN: 11/09/21 14:[address]: Umm Shoemaker DEPT: [facility] Cytology RECD BY: Buck Christian Tissues: 1 - CX/ENDOCX FOR PAP SMEARS Procedures: PAP THIN PREP/UVM Screening HPV DNA PROBE Comments: [id number] (CHLAMYDIA/GC)
[2021-11-11 23:06] LABS: Chlamydia Result Negative (Negative); GC Result Negative (Negative)
== END 2021-11-09 17:23 | disposition home or self-care (01) ==
LOC: LBN 17:22
PROVIDERS: Visit Provider Advanced Practice Midwife
DX: Z11.3 Encounter for screening for infections with a predominantly sexual mode of transmission (principal); Z12.4 Encounter for screening for malignant neoplasm of cervix; R87.613 High grade squamous intraepithelial lesion on cytologic smear of cervix (HGSIL); Z11.51 Encounter for screening for human papillomavirus (HPV); R87.810 Cervical high risk human papillomavirus (HPV) DNA test positive; Z87.42 Personal history of other diseases of the female genital tract
CPT/HCPCS: 87491; 87591; 88142; 87624

== ENCOUNTER 2021-11-25 11:59 | Outpatient (REF) | payer MEDICAID, SELFPAY ==
--- NOTE | 2021-11-25 11:00 | ENDO_PTH ---
PATIENT: Berna Lawrence LOC: [facility] U#:[id number] AGE/SX: 26/F ROOM: RE11/25/[address]: Julia Mendoza DO : 1995 BED: DIS: 11/25/2021 SPEC #: [id number] RECD: 11/25/21 12:30 STATUS: KING RERavin #: [id number] JUAN: 11/25/21 11:[address]: Julia Mendoza DEPT: Surgical Specimen RECD BY: Kimberlee Kulkarni Tissues: 1 - ENDOCERVICAL BX/CURRETTE 2 - CERVICAL BIOPSY Procedures: GROSS AND MICRO LEVEL 4 P16 IPEX Comments: [id number]
== END 2021-11-25 12:00 | disposition home or self-care (01) ==
LOC: LBN 11:59
PROVIDERS: Visit Provider Obstetrics & Gynecology
DX: N87.1 Moderate cervical dysplasia (principal); R87.613 High grade squamous intraepithelial lesion on cytologic smear of cervix (HGSIL)
CPT/HCPCS: 88305; 88342

== ENCOUNTER 2022-01-10 03:32 | Outpatient (CLI) | payer MEDICAID, SELFPAY | END 2022-01-10 03:33 | disposition home or self-care (01) | LOC: LBO 03:32 | PROVIDERS: Visit Provider Obstetrics & Gynecology ==

== ENCOUNTER 2022-01-10 03:33 | Outpatient (CLI) | payer MEDICAID, SELFPAY | END 2022-01-10 03:34 | disposition home or self-care (01) | LOC: LBO 03:33 | PROVIDERS: Visit Provider Obstetrics & Gynecology ==

== ENCOUNTER 2022-01-30 03:58 | Outpatient (CLI) | payer MEDICAID, SELFPAY ==
[2022-01-30 10:54] LABS: Source Nasal/Nares
[2022-01-30 14:46] LABS: COVID-19 PCR Negative (Negative)
== END 2022-01-30 03:59 | disposition home or self-care (01) ==
LOC: LBO 03:58
PROVIDERS: Visit Provider Obstetrics & Gynecology
DX: Z20.822 Contact with and (suspected) exposure to COVID-19 (principal); Z01.818 Encounter for other preprocedural examination
CPT/HCPCS: 87635

== ENCOUNTER 2022-01-30 03:58 | Outpatient (CLI) | payer MEDICAID, SELFPAY ==
[2022-01-30 11:36] LABS: HCT 37.8 % (36.0-46.0); HGB 11.8 g/dL (11.2-15.7); MCH 24.2 pg (27.0-33.0); MCHC 31.2 % (32.0-36.0); MCV 78 fL (80-95); MPV 11.2 fL (8.0-11.0); Platelet Count 241 10^3/uL (130-400); RBC 4.88 10^6/uL (3.93-5.22); RDW 15.7 % (11.7-14.6); RDW-SD 43.8 fL
== END 2022-01-30 03:59 | disposition home or self-care (01) ==
LOC: LBO 03:58
PROVIDERS: Visit Provider Obstetrics & Gynecology
DX: D06.9 Carcinoma in situ of cervix, unspecified; R87.613 High grade squamous intraepithelial lesion on cytologic smear of cervix (HGSIL); Z01.818 Encounter for other preprocedural examination; Z01.812 Encounter for preprocedural laboratory examination
CPT/HCPCS: 36415; 85027; 86850; 86900; 86901

== ENCOUNTER 2022-02-01 07:50 | Day surgery (SDC) | payer MEDICAID, SELFPAY ==
[2022-01-20 10:15] VITALS: BP 122/78; PULSE 54; RESP 15; TEMP 36.6; O2SAT 97
[2022-02-01] VITALS (8 sets, daily range): BP systolic 112–145; BP diastolic 67–127; PULSE 43–66; RESP 11–26; TEMP 36.1–36.6; O2SAT 97–99; BMI 49.9
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
[2022-02-01] MEDS: Lactated Ringers 1,000 ML 125 ML IV (09:01)
--- NOTE | 2022-02-01 09:56 | CER_PTH ---
PATIENT: Berna Lawrence LOC: [facility] U#:[id number] AGE/SX: 26/F ROOM: RE02/01/[address]: Julia Mendoza DO : 1995 BED: DIS: 02/01/2022 SPEC #: [id number] RECD: 02/01/22 12:52 STATUS: KING REQ #: [id number] JUAN: 02/01/22 09:[address]: Julia Mendoza DEPT: Surgical Specimen RECD BY: Kimberlee Kulkarni ENTERED: 02/01/22 12:52 SP TYPE: CER CB DR: Unknown,Unknown Tissues: 1 - CERVICAL BIOPSY 2 - CERVICAL BIOPSY Procedures: GROSS AND MICRO LEVEL 5 Comments: [id number]
--- NOTE | 2022-02-01 10:10 | W.PM.OP ---
Date of service: 02/01/22 Time of Service: 10:10 Operative Note Operative Note DATE OF PROCEDURE: 02/01/22 PRE-OP DIAGNOSIS: Cervical dysplasia POST-OP DIAGNOSIS: same PROCEDURE: Loop electrocautery excisional procedure SURGEON: Julia Mendoza ANESTHESIA TYPE: General LMA/ETT Refer to Anesthesia Record ESTIMATED BLOOD LOSS: 5 PATHOLOGY: other (1. Anterior cervix 2. Posterior cervix) COMPLICATIONS: None Patient was transported to: PACU Patient's condition: stable Indications: High-grade Pap smear and cervical dysplasia Findings: Visually normal-appearing cervix Procedure Description: Patient was taken the operating suite with an IV running where she was placed in dorsal supine position and general anesthesia administered. She was then placed in modified dorsolithotomy position and prepped and draped in usual sterile fashion. As of note Hibiclens was used rather than iodine due to significant shellfish allergy. A large Graves coated speculum was inserted into the vaginal vault and the vaginal sidewalls retracted. Cervix was identified and visually appeared normal. With a loop and cautery set at 60, 60, blend 1 a conization was performed of the anterior and posterior portion of the cervix. The base was then cauterized and found to be hemostatic. Monsel's solution was placed for continued hemostasis. Patient tolerated procedure without difficulty and woke from anesthesia with ease. EBL: 5 mL Findings: Normal-appearing cervix Pathology: 1. Anterior cervix 2. Posterior cervix Fluids: Crystalloid per anesthesia Complications: None apparent
--- NOTE | 2022-02-01 11:31 | W.ANESPOSTOP ---
Postoperative Evaluation Date, Time and Location Date Performed: 02/01/22 Time Performed: 11:31 Patient Location: Day Surgery Unit Vital Signs Most Recent Imported Vital Signs: Most Recent Vital Signs Temp Pulse Resp BP Pulse Ox 36.1 C L 56 L 16 113/69 97 02/01/22 11:19 02/01/22 11:19 02/01/22 11:19 02/01/22 11:19 02/01/22 11:19 Pain Score Most Recent Pain Score: Most Recent Pain Score Pain Level 3 02/01/22 11:19 Assessment Mental Status: Awake (Alert & Oriented to Patient Baseline) Airway and Respiratory Function: Patent airway with normal (patient baseline) respiratory exam Cardiovascular Function: Hemodynamically Stable Hydration Status: Adequately Hydrated Nausea & Vomiting: No Nausea or Vomiting Pain: Pt. Denies Any Pain Peripheral Nerve Block: Patient did not receive a nerve block
== END 2022-02-01 11:44 | disposition home or self-care (01) ==
PROVIDERS: Visit Provider Obstetrics & Gynecology
PROC: 0UBC7ZZ Excision of Cervix, Via Natural or Artificial Opening (ICD-10-PCS; CPT 57522; principal; 2022-02-01 09:15)
DX: R87.613 High grade squamous intraepithelial lesion on cytologic smear of cervix (HGSIL); E66.9 Obesity, unspecified; F32.A Depression, unspecified; F12.90 Cannabis use, unspecified, uncomplicated; Z68.42 Body mass index [BMI] 45.0-49.9, adult
CPT/HCPCS: 57522; 81025; 88305; 88307; J1100; J1885; J2405

== ENCOUNTER 2022-06-14 16:39 | Emergency (ER) | payer MEDICAID, SELFPAY ==
[2022-06-14 16:49] VITALS: BP 150/100; PULSE 96; RESP 12; TEMP 36.8; O2SAT 96
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
[2022-06-14] MEDS: predniSONE 20 MG TAB 40 MG PO (18:23)
[2022-06-14] MEDS: Triamcinolone 0.1% CR 15 GM TUBE TP (18:57)
== END 2022-06-14 19:00 | disposition home or self-care (01) ==
PROVIDERS: Emergency Provider Registered Nurse Emergency
DX: B08.4 Enteroviral vesicular stomatitis with exanthem (principal)
CPT/HCPCS: 99283; J7512

== ENCOUNTER 2022-08-22 12:08 | Outpatient (REF) | payer MEDICAID, SELFPAY ==
--- NOTE | 2022-08-22 10:05 | PAPFT_PTH ---
PATIENT: Berna Lawrence LOC: [facility] U#:[id number] AGE/SX: 26/F ROOM: RE08/22/[address]: Julia Mendoza DO : 1995 BED: DIS: 08/22/2022 SPEC #: [id number] RECD: 08/22/22 12:52 STATUS: [place] REQ #: [id number] JUAN: 08/22/22 10:[address]: Julia Mendoza DEPT: [facility] Cytology RECD BY: Kimberlee Kulkarni Tissues: 1 - CX/ENDOCX FOR PAP SMEARS Procedures: PAP THIN PREP/UVM Screening Comments: [id number]
== END 2022-08-22 12:09 | disposition home or self-care (01) ==
LOC: LBN 12:08
PROVIDERS: Visit Provider Obstetrics & Gynecology
DX: Z12.4 Encounter for screening for malignant neoplasm of cervix (principal)
CPT/HCPCS: 88142

== ENCOUNTER 2022-11-01 09:36 | Emergency (ER) | payer MEDICAID, SELFPAY ==
[2022-11-01 09:43] VITALS: BP 128/71; PULSE 79; RESP 18; TEMP 37; O2SAT 81
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
== END 2022-11-01 10:25 | disposition home or self-care (01) ==
PROVIDERS: Emergency Provider Emergency Medicine Emergency Medical Services
DX: M26.621 Arthralgia of right temporomandibular joint (principal)
CPT/HCPCS: 99283

== ENCOUNTER 2023-02-22 16:10 | Outpatient (REF) | payer MEDICAID, SELFPAY ==
--- NOTE | 2023-02-22 14:10 | PAPFT_PTH ---
PATIENT: Berna Lawrence LOC: [facility] U#:[id number] AGE/SX: 27/F ROOM: RE02/22/[address]: Julia Mendoza DO : 1995 BED: DIS: 02/22/2023 SPEC #: [id number] RECD: 02/22/23 18:32 STATUS: [place] REQ #: [id number] JUAN: 02/22/23 14:[address]: Julia Mendoza DEPT: [facility] Cytology RECD BY: Bridgette Rodriguez Tissues: 1 - CX/ENDOCX FOR PAP SMEARS Procedures: PAP THIN PREP/UVM Screening HPV DNA PROBE Comments: [id number]
== END 2023-02-22 16:11 | disposition home or self-care (01) ==
LOC: LBN 16:10
PROVIDERS: Visit Provider Obstetrics & Gynecology
DX: Z12.4 Encounter for screening for malignant neoplasm of cervix (principal); Z11.51 Encounter for screening for human papillomavirus (HPV)
CPT/HCPCS: 88142; 87624

== ENCOUNTER 2023-06-04 09:35 | Emergency (ER) | payer MEDICAID, SELFPAY ==
[2023-06-04 09:37] VITALS: BP 151/91; PULSE 82; RESP 18; TEMP 36.8; O2SAT 99
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
[2023-06-04] MEDS: Clindamycin 150 MG CAP PO (10:09)
== END 2023-06-04 10:10 | disposition home or self-care (01) ==
PROVIDERS: Emergency Provider Emergency Medicine Emergency Medical Services; PCP Physician Assistant Medical
DX: L03.311 Cellulitis of abdominal wall (principal); L02.221 Furuncle of abdominal wall
CPT/HCPCS: 99283

== ENCOUNTER 2023-07-03 15:06 | Outpatient (REF) | payer MEDICAID, SELFPAY ==
[2023-07-03 15:35] LABS: HCT 42.2 % (36.0-46.0); HGB 13.2 g/dL (11.2-15.7); MCH 24.4 pg (27.0-33.0); MCHC 31.3 % (32.0-36.0); MCV 78 fL (80-95); MPV 11.9 fL (8.0-11.0); Platelet Count 213 10^3/uL (130-400); RDW 14.6 % (11.7-14.6); RDW-SD 41.5 fL; WBC 9.32 10^3/uL (4.4-10.8)
[2023-07-03 15:55] LABS: Hemoglobin A1C 5.8 % (<5.7)
[2023-07-03 17:29] LABS: Calculated LDL 141 mg/dL (<100); Cholesterol 222 mg/dL (<200); HDL Cholesterol 45 mg/dL (40-60); TSH 2.43 uIU/mL (0.36-3.74); Triglyceride 180 mg/dL (<150)
[2023-07-03 17:49] LABS: FREE T4 0.73 ng/dL (0.76-1.46)
== END 2023-07-03 15:07 | disposition home or self-care (01) ==
LOC: NCHCN 15:06
PROVIDERS: PCP Physician Assistant Medical; Visit Provider Nurse Practitioner Family
DX: R79.89 Other specified abnormal findings of blood chemistry; N92.0 Excessive and frequent menstruation with regular cycle; E66.8 Other obesity; Z13.1 Encounter for screening for diabetes mellitus; Z83.3 Family history of diabetes mellitus
CPT/HCPCS: 80061; 85027; 83036; 84439; 84443

== ENCOUNTER 2023-09-10 13:53 | Outpatient (REF) | payer MEDICAID, SELFPAY ==
--- NOTE | 2023-09-10 14:00 | PAPFT_PTH ---
PATIENT: Berna Lawrence LOC: [facility] U#:[id number] AGE/SX: 27/F ROOM: RE09/10/[address]: Julia Mendoza DO : 1995 BED: DIS: 09/10/2023 SPEC #: [id number] RECD: 09/10/23 18:20 STATUS: YONNYSofia REQ #: [id number] JUAN: 09/10/23 14:[address]: Julia Mendoza DEPT: [facility] Cytology RECD BY: Kimberlee Kulkarni ENTERED: 09/10/23 18:20 SP TYPE: PAPFT OTHR DR: Carlene Ward Tissues: 1 - CX/ENDOCX FOR PAP SMEARS Procedures: PAP THIN PREP/UVM Screening HPV DNA PROBE Comments: [id number]
== END 2023-09-10 13:54 | disposition home or self-care (01) ==
LOC: LBN 13:53
PROVIDERS: PCP Physician Assistant Medical; Visit Provider Obstetrics & Gynecology
DX: Z12.4 Encounter for screening for malignant neoplasm of cervix (principal); Z11.51 Encounter for screening for human papillomavirus (HPV); R87.610 Atypical squamous cells of undetermined significance on cytologic smear of cervix (ASC-US)
CPT/HCPCS: 88142; 87624

== ENCOUNTER 2023-10-18 18:34 | Outpatient (REF) | payer MEDICAID, SELFPAY ==
[2023-10-18 17:33] LABS: Iron 40 ug/dL (50-170)
[2023-10-18 17:47] LABS: Ferritin 32 ng/mL (8-252); TSH 2.16 uIU/Ml (0.36-3.74)
[2023-10-18 18:04] LABS: FREE T4 0.72 ng/dL (0.76-1.46)
== END 2023-10-18 18:35 | disposition home or self-care (01) ==
LOC: NCHCN 18:34
PROVIDERS: PCP Physician Assistant Medical; Visit Provider Nurse Practitioner Family
DX: E66.9 Obesity, unspecified (principal); R89.9 Unspecified abnormal finding in specimens from other organs, systems and tissues
CPT/HCPCS: 82728; 83540; 84439; 84443

== ENCOUNTER 2023-10-19 11:33 | Outpatient (REF) | payer MEDICAID, SELFPAY ==
--- NOTE | 2023-10-19 10:00 | ENDO_PTH ---
PATIENT: Berna Lawrence LOC: [facility] U#:[id number] AGE/SX: 27/F ROOM: RE10/19/[address]: Julia Mendoza DO : 1995 BED: DIS: 10/19/2023 SPEC #: [id number] RECD: 10/19/23 11:41 STATUS: K[place] REQ #: [id number] JUAN: 10/19/23 10:[address]: Julia Mendoza DEPT: Surgical Specimen RECD BY: Kimberlee Kulkarni ENTERED: 10/19/23 11:41 SP TYPE: Endo OTHR DR: Carlene Ward Tissues: 1 - ENDOCERVICAL BX/CURRETTE Procedures: GROSS AND MICRO LEVEL 4 Comments: [id number]
== END 2023-10-19 11:34 | disposition home or self-care (01) ==
LOC: LBN 11:33
PROVIDERS: PCP Physician Assistant Medical; Visit Provider Obstetrics & Gynecology
DX: Z98.890 Other specified postprocedural states (principal); R87.610 Atypical squamous cells of undetermined significance on cytologic smear of cervix (ASC-US)
CPT/HCPCS: 88305

== ENCOUNTER 2024-04-04 14:54 | Outpatient (REF) | payer MEDICAID, SELFPAY ==
--- NOTE | 2024-04-04 13:40 | PAPFT_PTH ---
PATIENT: Berna Lawrence LOC: [facility] U#:[id number] AGE/SX: 28/F ROOM: RE04/04/[address]: Julia Mendoza DO : 1995 BED: DIS: 04/04/2024 SPEC #: [id number] RECD: 04/04/24 17:32 STATUS: K[place] REQ #: [id number] JUAN: 04/04/24 13:[address]: Julia Mendoza DEPT: [facility] Cytology RECD BY: Kimbelree Kulkarni ENTERED: 04/04/24 17:32 SP TYPE: PAPFT OTHR DR: Karyn Null Tissues: 1 - CX/ENDOCX FOR PAP SMEARS Procedures: PAP THIN PREP/UVM Screening HPV DNA PROBE Comments: [id number] (HPV 16 7 18/45)
== END 2024-04-04 14:55 | disposition home or self-care (01) ==
LOC: LBN 14:54
PROVIDERS: PCP Nurse Practitioner Family; Visit Provider Obstetrics & Gynecology
DX: Z12.4 Encounter for screening for malignant neoplasm of cervix (principal)
CPT/HCPCS: 88142; 87624

== ENCOUNTER 2024-04-17 17:32 | Outpatient (REF) | payer MEDICAID, SELFPAY ==
[2024-04-17 17:12] LABS: Iron 35 ug/dL (50-170); Total Iron Binding Capacity 352 ug/dL (250-450); Transferrin Sat 10 % (15-50)
[2024-04-17 17:27] LABS: Hemoglobin A1C 5.7 % (<5.7)
[2024-04-17 17:53] LABS: ALT 14 U/L (14-59); AST 13 U/L (15-37); Albumin 3.7 g/dL (3.4-5.0); Alkaline Phosphatase 102 U/L (46-116); Anion Gap 9.9 mmol/L (3-11); BUN 16 mg/dL (7-18); Bilirubin, Total 0.22 mg/dL (0.2-1.0); CO2 28.1 mmol/L (21.0-32.0); CREATININE 0.9 mg/dL (0.55-1.02); Calcium 9.6 mg/dL (8.5-10.1); Calculated LDL 134 mg/dL (<100); Chloride 108 mmol/L (98-107); Cholesterol 223 mg/dL (<200); Ferritin 22 ng/mL (8-252); Glucose 108 mg/dL (74-106); HDL Cholesterol 47 mg/dL (40-60); Potassium 4.7 mmol/L (3.5-5.1); Sodium 146 mmol/L (136-145); TSH 1.14 uIU/Ml (0.36-3.74); Total Protein 7.4 g/dL (6.4-8.2); Triglyceride 212 mg/dL (<150); Vitamin D 25 Total 25.2 ng/mL (30-100)
[2024-04-17 18:19] LABS: FREE T4 0.88 ng/dL (0.76-1.46)
[2024-04-17 20:29] LABS: Abs Immature Grans 0.05 10^3/uL (0.0-0.06); Absolute Basophil Count 0.07 10^3/uL (0.0-0.2); Absolute Eosinophil Count 0.11 10^3/uL (0.0-0.7); Absolute Lymphocyte Count 3.68 10^3/uL (1.2-3.4); Absolute Monocyte Count 0.53 10^3/uL (0.1-0.8); Absolute Neutrophil Count 5.72 10^3/uL (1.2-6.7); Basophils % 0.7 %; Eosinophils % 1.1 %; HCT 43.4 % (36.0-46.0); HGB 13.3 g/dL (11.2-15.7); Immature Grans % 0.5 %; Lymphocytes % 36.2 %; MCH 23.9 pg (27.0-33.0); MCHC 30.6 % (32.0-36.0); MCV 78 fL (80-95); MPV 11.4 fL (8.0-11.0); Monocytes % 5.2 %; Neutrophils % 56.3 %; Platelet Count 278 10^3/uL (130-400); RBC 5.56 10^6/uL (3.93-5.22); RDW 15.9 % (11.7-14.6); RDW-SD 45.7 fL; WBC 10.16 10^3/uL (4.4-10.8)
== END 2024-04-17 17:33 | disposition home or self-care (01) ==
LOC: NCHCN 17:32
PROVIDERS: PCP Nurse Practitioner Family; Visit Provider Nurse Practitioner Family
DX: E61.1 Iron deficiency (principal)
CPT/HCPCS: 80053; 80061; 82306; 82728; 83036; 83540; 83550; 84439; 84443; 85025

== ENCOUNTER 2024-09-09 07:30 | Outpatient (CLI) | payer MEDICAID, SELFPAY ==
[2024-09-09 14:36] LABS: Panorama Kit Sent via Fed Ex
[2024-09-09 14:41] LABS: Abs Immature Grans 0.05 10^3/uL (0.0-0.06); Absolute Basophil Count 0.05 10^3/uL (0.0-0.2); Absolute Eosinophil Count 0.12 10^3/uL (0.0-0.7); Absolute Lymphocyte Count 2.59 10^3/uL (1.2-3.4); Absolute Monocyte Count 0.58 10^3/uL (0.1-0.8); Absolute Neutrophil Count 6.85 10^3/uL (1.2-6.7); Basophils % 0.5 %; Eosinophils % 1.2 %; HCT 37.8 % (36.0-46.0); HGB 11.9 g/dL (11.2-15.7); Immature Grans % 0.5 %; Lymphocytes % 25.3 %; MCH 24.5 pg (27.0-33.0); MCHC 31.5 % (32.0-36.0); MCV 78 fL (80-95); MPV 10.5 fL (8.0-11.0); Monocytes % 5.7 %; Neutrophils % 66.8 %; Platelet Count 209 10^3/uL (130-400); RBC 4.86 10^6/uL (3.93-5.22); RDW 16.1 % (11.7-14.6); WBC 10.24 10^3/uL (4.4-10.8)
[2024-09-09 14:56] LABS: Hemoglobin A1C 5.7 % (<5.7)
[2024-09-09 15:58] LABS: ALT 14 U/L (14-59); AST 8 U/L (15-37); Albumin 3.1 g/dL (3.4-5.0); Alkaline Phosphatase 77 U/L (46-116); Anion Gap 8.4 mmol/L (3-11); BUN 12 mg/dL (7-18); Bilirubin, Total 0.15 mg/dL (0.2-1.0); CO2 27.6 mmol/L (21.0-32.0); CREATININE 0.7 mg/dL (0.55-1.02); Calcium 9.1 mg/dL (8.5-10.1); Chloride 105 mmol/L (98-107); Estimated GFR 120.74 (mL/min/1.73m2); Glucose 79 mg/dL (74-106); Potassium 4.1 mmol/L (3.5-5.1); Sodium 141 mmol/L (136-145); TSH (W/Ref FT4) 2.16 uIU/mL (0.36-3.74); Total Protein 6.8 g/dL (6.4-8.2)
[2024-09-09 23:49] LABS: Hepatitis B Surface Ag Negative (Negative)
[2024-09-10 00:30] LABS: HIV-1/2 Ag & Ab Screen Negative (Negative)
[2024-09-10 00:38] LABS: Hepatitis C Ab w Rflx HCV PCR Reactive (Negative)
[2024-09-10 10:50] LABS: Rubella IgG Ab (UVM) Positive (See Note); Varicella IgG Antibody Positive (See Note)
[2024-09-10 13:38] LABS: HCV RNA Qualitative Undetected (Undetected)
[2024-09-12 15:53] LABS: Syphilis IgG w/Reflex Nonreactive (Nonreactive)
== END 2024-09-09 07:31 | disposition home or self-care (01) ==
LOC: LBO 07:30
PROVIDERS: PCP Nurse Practitioner Family; Visit Provider Advanced Practice Midwife
DX: Z34.91 Encounter for supervision of normal pregnancy, unspecified, first trimester (principal)
CPT/HCPCS: 36415; 80053; 86787; 86803; 86850; 86900; 86901; 87340; 87389; 87522; 83036; 84443; 85025; 86762; 86780

== ENCOUNTER 2024-09-09 14:15 | Outpatient (REF) | payer MEDICAID, SELFPAY ==
[2024-09-09 16:21] LABS: *AMPHETAMINES SCREEN URINE Negative (Negative); *BARBITURATES SCREEN URINE Negative (Negative); *BENZODIAZEPINES SCREEN URINE Negative (Negative); Cannabinoids THC Positive (Negative); Cocaine Screen,Urine Negative (Negative); METHADONE URINE SCREEN Negative (Negative); OPIATES URINE SCREEN Negative (Negative)
[2024-09-09 16:29] LABS: Tricyclic Antidepressants Negative (Negative)
[2024-09-09 16:32] LABS: COMMENT (LAB VIEW ONLY) 215.81 mg/dL; PROTEIN 15.8 mg/dL; Prot/Crea Ur Ratio 0.07
[2024-09-10 12:29] LABS: Fentanyl Scr w/Rfx Confirm Negative ng/mL (<1)
[2024-09-10 13:38] LABS: Chlamydia Result Negative (Negative); GC Result Negative (Negative)
[2024-09-13 07:18] LABS: Buprenorphine Negative ng/mL (Cutoff: 5.0); Norbuprenorphine Negative ng/mL (Cutoff: 2.5)
== END 2024-09-09 14:16 | disposition home or self-care (01) ==
LOC: LBN 14:15
PROVIDERS: PCP Nurse Practitioner Family; Visit Provider Advanced Practice Midwife
DX: Z34.91 Encounter for supervision of normal pregnancy, unspecified, first trimester (principal)
CPT/HCPCS: 80307; 80348; 87491; 87591; 82565; 84156; 87086

== ENCOUNTER 2024-09-29 14:09 | Outpatient (CLI) | payer MEDICAID, SELFPAY ==
[2024-09-29 12:37] LABS: Panorama Kit Sent via Fed Ex
[2024-09-29 12:41] LABS: HCT 38.8 % (36.0-46.0); HGB 12.3 g/dL (11.2-15.7); MCH 24.6 pg (27.0-33.0); MCHC 31.7 % (32.0-36.0); MCV 78 fL (80-95); MPV 10.8 fL (8.0-11.0); Platelet Count 222 10^3/uL (130-400); RBC 4.99 10^6/uL (3.93-5.22); RDW 15.4 % (11.7-14.6); RDW-SD 43.4 fL; WBC 9.47 10^3/uL (4.4-10.8)
[2024-09-29 13:21] LABS: ALT 10 U/L (14-59); AST 9 U/L (15-37); Albumin 3.1 g/dL (3.4-5.0); Alkaline Phosphatase 68 U/L (46-116); Anion Gap 14.1 mmol/L (3-11); BUN 9 mg/dL (7-18); Bilirubin, Total 0.2 mg/dL (0.2-1.0); CO2 22.9 mmol/L (21.0-32.0); CREATININE 0.6 mg/dL (0.55-1.02); Calcium 9.4 mg/dL (8.5-10.1); Chloride 104 mmol/L (98-107); Estimated GFR 125.31 (mL/min/1.73m2); Glucose 94 mg/dL (74-106); Potassium 3.9 mmol/L (3.5-5.1); Sodium 141 mmol/L (136-145); Total Protein 7.2 g/dL (6.4-8.2)
== END 2024-09-29 14:10 | disposition home or self-care (01) ==
PROVIDERS: PCP Nurse Practitioner Family; Visit Provider Advanced Practice Midwife
DX: Z34.91 Encounter for supervision of normal pregnancy, unspecified, first trimester
CPT/HCPCS: 36415; 80053; 85027

== ENCOUNTER 2024-10-09 18:37 | Emergency (ER) | payer MEDICAID, SELFPAY ==
[2024-10-09 18:40] VITALS: BP 145/89; PULSE 89; RESP 18; TEMP 36.7; O2SAT 98
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
[2024-10-09] MEDS: Cyclobenzaprine 10 MG TAB, 3 TABS/BTL PO (19:01)
== END 2024-10-09 19:05 | disposition home or self-care (01) ==
LOC: ER 19:02
PROVIDERS: Emergency Provider Emergency Medicine; PCP Nurse Practitioner Family
DX: S09.90XA Unspecified injury of head, initial encounter (principal); W20.8XXA Other cause of strike by thrown, projected or falling object, initial encounter
CPT/HCPCS: 99283

== ENCOUNTER 2025-01-08 02:53 | Outpatient (CLI) | payer MEDICAID, SELFPAY ==
[2025-01-08 13:27] LABS: HCT 34.2 % (36.0-46.0); HGB 10.9 g/dL (11.2-15.7); MCH 25.1 pg (27.0-33.0); MCHC 31.9 % (32.0-36.0); MCV 79 fL (80-95); MPV 10.6 fL (8.0-11.0); Platelet Count 212 10^3/uL (130-400); RBC 4.34 10^6/uL (3.93-5.22); RDW 14.8 % (11.7-14.6); RDW-SD 42.6 fL; WBC 11.54 10^3/uL (4.4-10.8)
== END 2025-01-08 02:54 | disposition home or self-care (01) ==
LOC: LBO 02:53
PROVIDERS: PCP Nurse Practitioner Family; Visit Provider Advanced Practice Midwife
DX: Z34.92 Encounter for supervision of normal pregnancy, unspecified, second trimester (principal); O26.892 Other specified pregnancy related conditions, second trimester; Z67.91 Unspecified blood type, Rh negative
CPT/HCPCS: 36415; 85027; 86850; 90384

== ENCOUNTER 2025-01-22 10:52 | Outpatient (REF) | payer MEDICAID, SELFPAY ==
[2025-01-22 13:42] LABS: Cannabinoids THC Positive (Negative); METHADONE URINE SCREEN Negative (Negative)
[2025-01-23 11:40] LABS: Fentanyl Scr w/Rfx Confirm Negative ng/mL (<1)
== END 2025-01-22 10:53 | disposition home or self-care (01) ==
LOC: LBN 10:52
PROVIDERS: PCP Nurse Practitioner Family; Visit Provider Obstetrics & Gynecology
DX: Z34.93 Encounter for supervision of normal pregnancy, unspecified, third trimester
CPT/HCPCS: 80307; 80348

== ENCOUNTER 2025-02-06 01:06 | Outpatient (CLI) | payer MEDICAID, SELFPAY ==
--- NOTE | 2025-02-06 09:45 | DI.US_ITS ---
Exam(s) US OB HUMPHREY WEIGHT EXAM: US OB HUMPHREY WEIGHT CLINICAL HISTORY: efw and growth, high BMI, , Z34.90. TECHNIQUE: Transabdominal obstetrical ultrasound was performed. COMPARISON: US POCUS EXAM from 08/12/2024 There has been interval study [facility] which is not available at this time. FINDINGS: There is a single viable intrauterine gestation with cardiac activity identified-126 bpm The fetus is presently in cephalic position . Amniotic fluid: There is a normal amount of amniotic fluid with an HUMPHREY of 16.65cm. Placental location: The placenta is posterior-fundal/grade 2,with no evidence of placenta previa. Dating parameters place this at approximately 33 weeks and 4 days gestational age, implying SARAH of 03/23/2025. BPD measures 33 weeks and 5 days HC measures 33 weeks and 4 days AC measures 33 weeks and 4 days FL measures 33 weeks and 2 days Estimated weight is 2207 gm-4 pounds, 14 ounces Fetus is at the 52nd percentile on the Hadlock scale. IMPRESSION:: Viable 3rd trimester gestation, as described above. Presently in cephalic position HUMPHREY= 16.65cm (within normal limits). DATA REPOSITORY:
== END 2025-02-06 01:26 ==
LOC: DI 01:06
PROVIDERS: PCP Nurse Practitioner Family; Visit Provider Advanced Practice Midwife
DX: O43.123 Velamentous insertion of umbilical cord, third trimester; Z3A.33 33 weeks gestation of pregnancy
CPT/HCPCS: 76816

== ENCOUNTER 2025-02-20 00:48 | Outpatient (CLI) | payer MEDICAID, SELFPAY ==
[2025-02-20 10:45] LABS: TSH (W/Ref FT4) 3.59 uIU/mL (0.36-3.74)
== END 2025-02-20 00:49 | disposition home or self-care (01) ==
LOC: LBO 00:48
PROVIDERS: PCP Nurse Practitioner Family; Visit Provider Advanced Practice Midwife
DX: E03.9 Hypothyroidism, unspecified (principal)
CPT/HCPCS: 36415; 84443

== ENCOUNTER 2025-02-20 11:04 | Outpatient (REF) | payer MEDICAID, SELFPAY | END 2025-02-20 11:05 | disposition home or self-care (01) | LOC: LBN 11:04 | PROVIDERS: PCP Nurse Practitioner Family; Visit Provider Advanced Practice Midwife | DX: Z34.93 Encounter for supervision of normal pregnancy, unspecified, third trimester (principal) | CPT/HCPCS: 87186; 87081 ==

== ENCOUNTER 2025-02-23 08:17 | Outpatient (CLI) | payer MEDICAID, SELFPAY ==
[2025-02-23 09:09] VITALS: BP 125/74; PULSE 96; TEMP 36.6
[2025-02-23 09:11] VITALS: BP 125/74; PULSE 96
--- NOTE | 2025-02-23 12:58 | W.OBNST ---
Date of service: 02/23/25 Time of Service: 12:58 NST Evaluation Reason for NST Reasons for Nonstress Test: OTHER, SEE COMMENT Reason for NST Other: placenta previa Gestational Age Gestational Age in Weeks and Days: 35 Weeks and 4Days Test and Monitor Explained Test/Monitor Explained: Test Explained, Monitor Explained and Patient Verbalized Understanding Vital Signs Blood Pressure: 125/74 Pulse: 96 Temperature: 98 F Urine Results Urine Protein: Negative Urine Ketones: Negative Urine Glucose: Negative Urine Blood: Negative NST Information Date on Monitor: 02/23/25 Time on Monitor: 09:08 Date off Monitor: 02/23/25 Time off Monitor: 09:49 Total Time on Monitor: 41 NST Interventions: PO Hydration Contraction Frequency: irregular/rare NST Evaluation Patient States Movement: Present FHR Baseline: 125 Variability: Moderate 6-25 bpm Accelerations: 15x15 Decelerations: None NST Results: Reactive Note Ultrasound Done: N/A. NST Note Note: Berna is here for weekly NST. Reactive NST. return to center weekly. NST Reviewed and Verified by: Bree Brown
[2025-02-23 12:59] VITALS: BP 125/74; PULSE 96; TEMP 36.6
== END 2025-02-23 09:55 ==
LOC: BCD 08:23 → OBS 08:55
PROVIDERS: PCP Nurse Practitioner Family; Visit Provider Advanced Practice Midwife
DX: Z3A.35 35 weeks gestation of pregnancy (principal); O44.03 Complete placenta previa NOS or without hemorrhage, third trimester
CPT/HCPCS: 59025

== ENCOUNTER 2025-03-02 07:54 | Outpatient (CLI) | payer MEDICAID, SELFPAY ==
[2025-03-02 09:50] VITALS: BP 103/62; PULSE 94; TEMP 36.6
[2025-03-02 09:55] VITALS: BP 103/62; PULSE 94
--- NOTE | 2025-03-02 15:12 | W.OBNST ---
Date of service: 03/02/25 Time of Service: 10:30 NST Evaluation Reason for NST Reasons for Nonstress Test: OTHER, SEE COMMENT Reason for NST Other: well being-velamentous cord insertion Gestational Age Gestational Age in Weeks and Days: 36 Weeks and 4Days Test and Monitor Explained Test/Monitor Explained: Test Explained, Monitor Explained and Patient Verbalized Understanding Vital Signs Blood Pressure: 103/62 Pulse: 94 Temperature: 97.9 F Urine Results Urine Protein: Negative Urine Ketones: Negative Urine Glucose: Negative Urine Blood: Negative NST Information Date on Monitor: 03/02/25 Time on Monitor: 09:45 Date off Monitor: 03/02/25 Time off Monitor: 10:27 Total Time on Monitor: 42 NST Interventions: PO Hydration NST Evaluation Patient States Movement: Present FHR Baseline: 130 Variability: Moderate 6-25 bpm Accelerations: 10x10 Decelerations: None Note Ultrasound Done: N/A. NST Note NST Reviewed and Verified by: Umm Shoemaker
[2025-03-02 15:13] VITALS: BP 103/62; PULSE 94; TEMP 36.6
== END 2025-03-02 10:30 ==
LOC: BCD 07:55 → OBS 09:24
PROVIDERS: PCP Nurse Practitioner Family; Visit Provider Advanced Practice Midwife
DX: Z3A.36 36 weeks gestation of pregnancy (principal); O43.123 Velamentous insertion of umbilical cord, third trimester
CPT/HCPCS: 59025

== ENCOUNTER 2025-03-02 12:53 | Outpatient (CLI) | payer MEDICAID, SELFPAY ==
[2025-03-02 11:43] LABS: HCT 33.8 % (36.0-46.0); HGB 10.7 g/dL (11.2-15.7); MCH 24.8 pg (27.0-33.0); MCHC 31.7 % (32.0-36.0); MCV 78 fL (80-95); MPV 11.0 fL (8.0-11.0); Platelet Count 225 10^3/uL (130-400); RBC 4.32 10^6/uL (3.93-5.22); RDW 14.8 % (11.7-14.6); RDW-SD 41.9 fL; WBC 11.97 10^3/uL (4.4-10.8)
[2025-03-02 13:33] LABS: Hemoglobin A1C 5.7 % (<5.7)
== END 2025-03-02 12:54 | disposition home or self-care (01) ==
LOC: LBO 12:54
PROVIDERS: PCP Nurse Practitioner Family; Visit Provider Advanced Practice Midwife
DX: Z34.93 Encounter for supervision of normal pregnancy, unspecified, third trimester (principal)
CPT/HCPCS: 36415; 85027; 83036

== ENCOUNTER 2025-03-05 03:15 | Outpatient (CLI) | payer MEDICAID, SELFPAY ==
--- NOTE | 2025-03-05 06:30 | DI.US_ITS ---
Exam(s) US OB HUMPHREY WEIGHT EXAM: US OB HUMPHREY WEIGHT CLINICAL HISTORY: high BMI,Z34.90. TECHNIQUE: Transabdominal obstetrical ultrasound performed. COMPARISON: US US OB HUMPHREY WEIGHT from 02/06/2025 FINDINGS: Number of fetuses: 1 position: CEPHALIC Placental location: There is a grade 2 posterior and fundal placenta. No evidence of previa. BIOMETRIC DATA: BPD: 9.18cm, 37weeks 2days HC: 32.77cm, 37weeks 1day AC: 33.91cm, 37weeks 6days FL: 7.05cm, 36weeks 1day EFW: 3,168.9g, 7lb 0.48oz, 64.3% Composite Age: 37weeks 1day SARAH: 03/25/2025 Heart Rate: 171bpm Amniotic fluid index: 17.93cm. The largest pocket measures 7.5 cm. IMPRESSION: 1. Single live intrauterine gestation as above. 2. Estimated weight is 3169gms. This is the 64th percentile. 3. Amniotic fluid index is 17.9 cm. The largest pocket measures 7.5 cm. DATA REPOSITORY:
== END 2025-03-05 03:35 ==
LOC: DI 03:15
PROVIDERS: PCP Nurse Practitioner Family; Visit Provider Advanced Practice Midwife
DX: Z34.93 Encounter for supervision of normal pregnancy, unspecified, third trimester (principal); Z3A.37 37 weeks gestation of pregnancy
CPT/HCPCS: 76816

== ENCOUNTER 2025-03-08 07:42 | Outpatient (CLI) | payer MEDICAID, SELFPAY ==
[2025-03-08 09:12] VITALS: BP 122/76; PULSE 86
[2025-03-08 09:13] VITALS: BP 122/76; PULSE 86
--- NOTE | 2025-03-08 09:30 | W.OBNST ---
Date of service: 03/08/25 Time of Service: 09:30 NST Evaluation Reason for NST Reasons for Nonstress Test: OTHER, SEE COMMENT Reason for NST Other: contractions Gestational Age Gestational Age in Weeks and Days: 37 Weeks and 3Days Test and Monitor Explained Test/Monitor Explained: Test Explained, Monitor Explained and Patient Verbalized Understanding Vital Signs Blood Pressure: 122/76 Pulse: 86 Urine Results Urine Protein: Positive Urine Ketones: Negative Urine Glucose: Negative Urine Blood: Negative NST Information Date on Monitor: 03/08/25 Time on Monitor: 08:45 Date off Monitor: 03/08/25 Time off Monitor: 09:15 Total Time on Monitor: 30 NST Interventions: PO Hydration Contraction Frequency: irritability, none appreciated on monitor, toco moved x 3 to capture NST Evaluation Patient States Movement: Present FHR Baseline: 155 Variability: Moderate 6-25 bpm Accelerations: 15x15 Decelerations: None NST Results: Reactive Note Ultrasound Done: N/A. NST Note Note: See separate progress note for visit details. NST is reactive. NST Reviewed and Verified by: Tory Morales
[2025-03-08 09:32] VITALS: BP 122/76; PULSE 86
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
== END 2025-03-08 09:25 ==
LOC: BCD 07:42 → OBS 08:55
PROVIDERS: PCP Nurse Practitioner Family; Visit Provider Advanced Practice Midwife
DX: Z3A.37 37 weeks gestation of pregnancy (principal); O47.1 False labor at or after 37 completed weeks of gestation
CPT/HCPCS: 59025

== ENCOUNTER 2025-03-09 08:50 | Outpatient (CLI) | payer MEDICAID, SELFPAY ==
[2025-03-09 09:09] VITALS: BP 137/81; PULSE 78
[2025-03-09 09:36] VITALS: BP 138/79; PULSE 80
[2025-03-09 09:45] VITALS: BP 138/79; PULSE 80
--- NOTE | 2025-03-09 11:37 | W.OBNST ---
Date of service: 03/09/25 Time of Service: 09:00 NST Evaluation Reason for NST Reasons for Nonstress Test: OTHER, SEE COMMENT Reason for NST Other: velamentous cord insertion Gestational Age Gestational Age in Weeks and Days: 37 Weeks and 4Days Test and Monitor Explained Test/Monitor Explained: Test Explained, Monitor Explained and Patient Verbalized Understanding Vital Signs Blood Pressure: 138/79 Pulse: 80 Urine Results Urine Protein: Negative Urine Ketones: Negative Urine Glucose: Negative Urine Blood: Negative NST Information Date on Monitor: 03/09/25 Time on Monitor: 08:51 Date off Monitor: 03/09/25 Time off Monitor: 09:36 Total Time on Monitor: 45 NST Interventions: PO Hydration Contraction Frequency: q 9-10 minutes NST Evaluation Patient States Movement: Present FHR Baseline: 140 Variability: Moderate 6-25 bpm Accelerations: 15x15 Decelerations: None NST Results: Reactive Note Ultrasound Done: N/A. NST Note NST Reviewed and Verified by: Umm Shoemaker
[2025-03-09 11:38] VITALS: BP 138/79; PULSE 80
== END 2025-03-09 09:40 ==
LOC: BCD 08:53 → OBS 08:59
PROVIDERS: PCP Nurse Practitioner Family; Visit Provider Advanced Practice Midwife
DX: Z3A.37 37 weeks gestation of pregnancy (principal); O43.123 Velamentous insertion of umbilical cord, third trimester
CPT/HCPCS: 59025

== ENCOUNTER 2025-03-17 19:54 | Inpatient (IN) | payer MEDICAID, SELFPAY ==
[2025-03-17] VITALS (11 sets, daily range): BP systolic 129–135; BP diastolic 74–80; PULSE 98–128; RESP 16; TEMP 35.7–37.3; O2SAT 95–98
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
[2025-03-17 20:34] LABS: HCT 34.1 % (36.0-46.0); HGB 10.9 g/dL (11.2-15.7); MCH 24.6 pg (27.0-33.0); MCHC 32.0 % (32.0-36.0); MCV 77 fL (80-95); MPV 10.9 fL (8.0-11.0); Platelet Count 252 10^3/uL (130-400); RBC 4.43 10^6/uL (3.93-5.22); RDW 14.9 % (11.7-14.6); RDW-SD 41.0 fL; WBC 11.90 10^3/uL (4.4-10.8)
[2025-03-17] MEDS: CLINDAMYCIN 900 MG/50 ML BAG 50 MG IVPB (20:40)
[2025-03-17] MEDS: Lactated Ringers 1,000 ML 125 ML IV (20:41)
[2025-03-17] MEDS: Normal Saline Flush 10 ML SYR IVP ×2 (20:49→23:32)
[2025-03-17 20:54] LABS: Hemoglobin A1C 5.8 % (<5.7)
[2025-03-17 21:07] LABS: ALT 11 U/L (14-59); AST 16 U/L (15-37); Albumin 2.7 g/dL (3.4-5.0); Alkaline Phosphatase 154 U/L (46-116); Anion Gap 15.3 mmol/L (3-11); BUN 10 mg/dL (7-18); Bilirubin, Total 0.6 mg/dL (0.2-1.0); CO2 19.7 mmol/L (21.0-32.0); Calcium 9.1 mg/dL (8.5-10.1); Chloride 101 mmol/L (98-107); Estimated GFR 119.99 (mL/min/1.73m2); Glucose 97 mg/dL (74-106); Potassium 3.9 mmol/L (3.5-5.1); Sodium 136 mmol/L (136-145); Total Protein 6.9 g/dL (6.4-8.2)
[2025-03-17 21:44] LABS: Lab Add On Test DONE
[2025-03-17 22:06] LABS: TSH (W/Ref FT4) 2.62 uIU/mL (0.36-3.74)
[2025-03-17 22:37] LABS: Cannabinoids THC Positive (Negative); METHADONE URINE SCREEN Negative (Negative); PROTEIN 86.0 mg/dL; Prot/Crea Ur Ratio 0.43
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
[2025-03-17 22:58] LABS: COVID-19 PCR Negative (Negative); RSV PCR Negative (Negative)
[2025-03-17] MEDS: Oxytocin/Normal Saline 30 UNIT/500 ML BAG 2 UNITS IV (23:30)
[2025-03-18] VITALS (15 sets, daily range): BP systolic 126–147; BP diastolic 62–87; PULSE 90–110; RESP 16; TEMP 36.8–37.4; O2SAT 98
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
--- NOTE | 2025-03-18 03:48 | W.OBDELIVERY ---
Date of service: 03/18/25 Time of Service: 03:49 OB Labor/ Delivery Information Providers Doctor: Alejandra Schmitz Nurse: Renee Shoemaker Nurse: Jess Sorto Other: Thu hansen Labor/Delivery Information Number of Babies in Womb: 1 Steroids Given: None Reason Steroids Not Administered: N/A Group Beta Strep: Positive Antibiotics Administered: Yes Rubella Status: Immune Blood Type: B- Varicella Immunity: Immune Shoulder Dystocia: No Stages of Labor Onset of Labor Date: 03/17/25 Onset of Labor Time: 18:30 Complete Dilatation Date: 03/18/25 ROM Baby A: 03/17/25 ROM Baby A: 18:30 ROM Total Time- Baby A: [id number] Delivery Date-Baby A: 03/18/25 Delivery Time-Baby A: 03:30 Placenta Delivery Date-Baby A: 03/18/25 Placenta Delivery Time-Baby A: 03:33 Labor-Stage 3 Duration: 3 minutes Total Length of Labor-Baby A: 9 hours and 0 minutes Placenta Status: Delivered Baby A Infant Gender: Female Gestational Status: Early Term (37-38.6 wks) Gestational Age in Weeks/Days: 38 Weeks and 6 Days Length-Baby A: 18 in Score-1 Minute Interval(Baby A) Heart Rate-1 minute: 100 BPM or Greater Respiratory Effort- 1 minute: Spontaneous/Strong Cry Muscle Tone-1 minute: Active Movement Reflex Response-1 minute: Minimal Response Color-1 minute: Bluish Hands or Feet Total Score-1 minute: 8 Score-5 Minute Interval(Baby A) Heart Rate- 5 minute: 100 BPM or Greater Respiratory Effort-5 minute: Spontaneous/Strong Cry Muscle Tone-5 minute: Active Movement Reflex Response-5 minute: Prompt Response Color-5 minute: Bluish Hands or Feet Total Score- 5 minute: 9 Note: 29 yo G4 now [id number] underwent a 38 week spontaneous vaginal delivery to a baby girl over an intact perineum without epidural. Ms. Lawrence presented to L&D after spontaneous rupture of membranes at 1830 to clear fluid. She was initiated on Clindamycin for GBS prophylaxis and monitored for 4 hours, at which point augmentation with Pitocin was initiated. Her labor progressed and her pain was well controlled on nitrous. I was called to the room when the patient requested to push. Upon entering the room, the patient was found to be well controlled and bearing down. SVE found her complete with a baby on the perineum. As I grabbed the table in order to prepare for delivery, the mother called out that she felt the head. I turned around to find her delivering the head into the bed. A nuchal cord x1 was appreciated and easily reduced as she delivered the rest of the body without issue. Baby was immediately vigorous and the baby was placed immediately on the maternal chest. After delayed cord clamping was observed, the cord was double clamped and cut by the father of the baby under the guidance of the physician. Shortly after this, the placenta delivered spontaneously on its own into the bed fully intact. No further bleeding was appreciated. A section of cord was double clamped, cut and set aside from the umbilical cord for gases if needed. Cord blood was then collected from the remaining cord. No repairs were necessary. Crede of the fundus found it to be firm and low. Of note, evaluation of the placenta appreciated a marginal cord insertion. Mother and baby tolerated the procedure well.
[2025-03-18] MEDS: Levothyroxine 50 MCG TAB PO (06:15)
[2025-03-18] MEDS: Acetaminophen 325 MG TAB 650 MG PO ×4 (06:16→20:12)
[2025-03-18] MEDS: Hamamelis Leaf/Glycerin 100 EACH BOX PR (08:32)
[2025-03-18] MEDS: Ibuprofen 600 MG TAB PO ×3 (08:32→22:15)
[2025-03-18] MEDS: Dibucaine 1% 28 GM TUBE TP (08:32)
[2025-03-18] MEDS: Ferrous Sulfate 325 MG TAB PO (12:35)
[2025-03-18] MEDS: Docusate Sodium 100 MG CAP PO (16:21)
[2025-03-19] MEDS: Ibuprofen 600 MG TAB PO (05:54)
[2025-03-19] MEDS: Levothyroxine 50 MCG TAB PO (05:54)
[2025-03-19] MEDS: Acetaminophen 325 MG TAB 650 MG PO ×2 (05:54→10:32)
[2025-03-19] MEDS: Docusate Sodium 100 MG CAP PO (05:56)
[2025-03-19] MEDS: RHO(D) Immune Globulin 1,500 UNIT Syringe 1500 UNIT IM (06:48)
[2025-03-19] MEDS: Omeprazole 20 MG CAPCR PO (10:31)
[2025-03-19] MEDS: Ferrous Sulfate 325 MG TAB PO (10:31)
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
== END 2025-03-19 15:45 | disposition home or self-care (01) | DRG 806 ==
LOC: BCD 22:59 → OBS 22:59
PROVIDERS: Admitting Provider Obstetrics & Gynecology; PCP Nurse Practitioner Family; Visit Provider Advanced Practice Midwife
DX: O43.123 Velamentous insertion of umbilical cord, third trimester (principal); O98.42 Viral hepatitis complicating childbirth; Z37.0 Single live birth; O99.324 Drug use complicating childbirth; Z3A.38 38 weeks gestation of pregnancy; Z88.0 Allergy status to penicillin; O99.824 Streptococcus B carrier state complicating childbirth; O69.81X0 Labor and delivery complicated by cord around neck, without compression, not applicable or unspecified; O99.214 Obesity complicating childbirth; E66.813 Obesity, class 3; O99.284 Endocrine, nutritional and metabolic diseases complicating childbirth; E03.9 Hypothyroidism, unspecified; O99.344 Other mental disorders complicating childbirth; F41.8 Other specified anxiety disorders; F12.90 Cannabis use, unspecified, uncomplicated; O16.4 Unspecified maternal hypertension, complicating childbirth; B19.20 Unspecified viral hepatitis C without hepatic coma; O99.02 Anemia complicating childbirth; O26.893 Other specified pregnancy related conditions, third trimester; Z67.91 Unspecified blood type, Rh negative; G89.29 Other chronic pain; M54.9 Dorsalgia, unspecified; F17.210 Nicotine dependence, cigarettes, uncomplicated; O99.334 Smoking (tobacco) complicating childbirth; J45.909 Unspecified asthma, uncomplicated; O99.52 Diseases of the respiratory system complicating childbirth; O99.62 Diseases of the digestive system complicating childbirth; K21.9 Gastro-esophageal reflux disease without esophagitis
CPT/HCPCS: 36415; 80053; 80307; 85027; 85461; 86850; 86900; 86901; 87522; 87637; 90384; J2790; 59025; 82565; 83036; 84156; 84443; 88307; J0737

== ENCOUNTER 2025-03-24 01:35 | Outpatient (CLI) | payer MEDICAID, SELFPAY ==
[2025-03-24 11:14] LABS: HCT 37.2 % (36.0-46.0); HGB 11.4 g/dL (11.2-15.7); MCH 24.1 pg (27.0-33.0); MCHC 30.6 % (32.0-36.0); MCV 79 fL (80-95); MPV 10.7 fL (8.0-11.0); Platelet Count 321 10^3/uL (130-400); RBC 4.73 10^6/uL (3.93-5.22); RDW 14.7 % (11.7-14.6); RDW-SD 41.3 fL; WBC 11.50 10^3/uL (4.4-10.8)
[2025-03-24 11:53] LABS: ALT 16 U/L (14-59); AST 16 U/L (15-37); Albumin 3.0 g/dL (3.4-5.0); Alkaline Phosphatase 114 U/L (46-116); Anion Gap 13.1 mmol/L (3-11); BUN 9 mg/dL (7-18); Bilirubin, Total 0.3 mg/dL (0.2-1.0); CO2 23.9 mmol/L (21.0-32.0); Calcium 9.7 mg/dL (8.5-10.1); Chloride 107 mmol/L (98-107); Estimated GFR 102.22 (mL/min/1.73m2); Glucose 87 mg/dL (74-106); Potassium 3.8 mmol/L (3.5-5.1); Sodium 144 mmol/L (136-145); Total Protein 7.8 g/dL (6.4-8.2)
[2025-03-24 12:16] LABS: PROTEIN 66.1 mg/dL; Prot/Crea Ur Ratio 0.17
== END 2025-03-24 01:36 | disposition home or self-care (01) ==
LOC: LBO 03-25 01:35
PROVIDERS: PCP Nurse Practitioner Family; Visit Provider Advanced Practice Midwife
DX: I10 Essential (primary) hypertension (principal)
CPT/HCPCS: 36415; 80053; 85027; 82565; 84156

== ENCOUNTER 2025-03-25 12:22 | Emergency (ER) | payer MEDICAID, SELFPAY ==
[2025-03-25 12:27] VITALS: BP 151/97; PULSE 98; RESP 17; TEMP 36.6; O2SAT 92
[2025-03-25 12:31] VITALS: BP 151/97; PULSE 98; RESP 17; TEMP 36.6; O2SAT 92
--- NOTE | 2025-03-25 12:45 | DI.RAD_ITS ---
Exam(s) XR CHEST 2V PA LATERAL EXAM: XR CHEST 2V PA LATERAL CLINICAL HISTORY: shortness of breath, wheezing. TECHNIQUE: 2D digital imaging was performed. COMPARISON: No exams were available for comparison FINDINGS: 2 views: Heart size is normal. The mediastinum is not widened. Mild increased markings in both lower lobes. Suspect infiltrates. No pleural effusions. IMPRESSION: Mild bilateral lower lobe infiltrates. There are no pleural effusions. DATA REPOSITORY: RADIATION DOSE DELIVERED:
[2025-03-25] MEDS: predniSONE 20 MG TAB 40 MG PO (13:33)
[2025-03-25] MEDS: Albuterol/Ipratropium 3 ML UPD VIAL UPD (13:33)
--- NOTE | 2025-03-25 14:00 | DI.CT_ITS ---
Exam(s) CT CHEST PE CTA EXAM: CT CHEST PE CTA CLINICAL HISTORY: post , bilateral infiltrate, eval for pE. TECHNIQUE: Imaging Protocol: Axial CT angiography was performed with multi- slice acquisition and multi-planar and/or 3D reconstructions. Lung Computer Aided Detection (CAD) was utilized. CONTRAST MATERIAL: Intravenous: Omnipaque 350 contrast volume:100 mL COMPARISON: CR XR CHEST 2V PA LATERAL from 03/25/2025 FINDINGS: Tracheobronchial tree: Patent where visualized. No bronchiectasis. Pulmonary parenchyma: There is a multifocal infiltrate involving the lower lobes bilaterally, the left upper lobe, the left lingula and the right middle lobe. The infiltrate has a reticular nodular appearance. No focal consolidations are present. There is atelectasis seen in the lower lobes. Pulmonary Arteries: No evidence of filling defect to suggest pulmonary emboli. Mediastinum and Ngozi: There are prominent lymph nodes seen in the mediastinum and ngozi bilaterally which are likely reactive. The esophagus is unremarkable. Visualized thyroid gland: Unremarkable. Pleura: No effusion or pneumothorax. Heart: The heart is not dilated. No coronary artery calcifications are seen. No pericardial effusion. Aorta: Thoracic aorta non-dilated. No evidence of dissection. Upper abdomen: Status post cholecystectomy. Soft tissues: Unremarkable. Bones: Within normal limits for the patient's age. IMPRESSION: 1. No evidence of pulmonary embolism, thoracic aortic dissection or aneurysm. 2. Multifocal pulmonary infiltrates with a tree in bud appearance. Differential considerations include infection including bacterial, mycobacterial or fungal, asthma or ABPA. RADIATION DOSE DELIVERED: 167.21mGy.cm Total DLP DATA REPOSITORY: All CT scans at this facility are submitted to the National Radiology Data Registry (NRDR) Dose Index Registry (DIR) with the [employer] ([employer]). RADIATION OPTIMIZATION: All CT scans at this facility use at least one of these dose optimization techniques: automated exposure control; mA and/or kV adjustment per patient size (includes targeted exams where dose is matched to clinical indication); or iterative reconstruction.
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
[2025-03-25 14:56] VITALS: BP 138/89; PULSE 78; RESP 14; O2SAT 95
[2025-03-25] MEDS: Normal Saline Flush 10 ML SYR IVP (15:05)
[2025-03-25] MEDS: Normal Saline - Diluent 50 ML VIAL IJ (15:05)
[2025-03-25] MEDS: Omnipaque 350 MG/ML 100 ML BTL IJ (15:06)
[2025-03-25 16:31] VITALS: BP 135/82; PULSE 79; PULSE 86; RESP 16; O2SAT 93; O2SAT 95
== END 2025-03-25 16:32 | disposition home or self-care (01) ==
PROVIDERS: Emergency Provider Physician Assistant; PCP Nurse Practitioner Family
DX: J18.9 Pneumonia, unspecified organism (principal); I10 Essential (primary) hypertension; Z59.41 Food insecurity
CPT/HCPCS: 99284 ×2; 71275; 71046; J3490; J7512; J7620

== ENCOUNTER 2025-06-10 11:46 | Outpatient (CLI) | payer MEDICAID, SELFPAY ==
[2025-06-10 12:17] LABS: TSH (W/Ref FT4) 2.30 uIU/mL (0.55-4.78)
== END 2025-06-10 11:47 | disposition home or self-care (01) ==
LOC: LBO 11:47
PROVIDERS: PCP Nurse Practitioner Family; Visit Provider Advanced Practice Midwife
DX: E03.9 Hypothyroidism, unspecified (principal); Z39.1 Encounter for care and examination of lactating mother
CPT/HCPCS: 36415; 84443